=== PATIENT | male | born 1955 | race Caucasian/White ===

== ENCOUNTER 2018-04-16 11:10 | Inpatient (IN) | payer OTHER ==
[2018-04-16 11:25] VITALS: BMI 31.1
--- NOTE | 2018-04-16 14:52 | HP ---
COWS - Scale Resting Pulse: 0= [place] 80 or Below Sweatin= Chills/Flushing Restless Observation: 3= Extraneous Movement Pupil Size: 1= Pupils >than Normal Bone or Joint Aches: 2= Severe Diffuse Aches Runny Nose/ Eye Tearin= Runny Nose/Eyes GI Upset > 30mins: 2= Nausea/Diarrhea Tremor Observation: 2= Slight Tremor Visible Yawning Observation: 2= >3x During Session Anxiety or Irritability: 2=Irritable/Anxious Goose Flesh Skin: 0=Smooth Skin COWS Score: 17 CIWA Score Nausea/Vomitin Muscle Tremors: 2 Anxiety: 2 Agitation: 2 Paroxysmal Sweats: 1-Minimal Palms Moist Orientation: 0-Oriented Tacttile Disturbances: 1-Very Mild Itch/Numbness Auditory Disturbances: 1-Very Mild Visual Disturbances: 0-None Headache: 2-Mild CIWA-Ar Total Score: 13 - Admission Criteria [facility] Guidelines: Admission for Medically Managed Detox: Requires at least one of the followin. CIWA greater than 12 2. Seizures within the past 24 hours 3. Delirium tremens within the past 24 hours 4. Hallucinations within the past 24 hours 5. Acute intervention needed for co occurring medical disorder 6. Acute intervention needed for co occurring psychiatric disorder 7. Severe withdrawal that cannot be handled at a lower level of care (continued vomiting, continued diarrhea, abnormal vital signs) requiring intravenous medication and/or fluids 8. Patient presents the following: CIWA greater than 12 Admission Criteria Met: Admission criteria met Admission ROS [facility] Chief Complaint: i need help to stop using heroin and alcohol Allergies/Adverse Reactions: Allergies Allergy/AdvReac Type Severity Reaction Status Date / Time No Known Allergies Allergy Verified 04/16/18 14:44 History of Present Illness: this 63 years old male with heroin and alcohol dependence,seeking detox from heroin and alcohol,withdrawal symptom,seeking detox,never been in detox before hepatitis c treated anxiety positive ppd longest sobriety 3 and half - Ebola screening Have you traveled outside of the country in the last 21 days: No Have you had contact with anyone from an Ebola affected area: No Have you been sick,other than usual withdrawal symptoms: No Do you have a fever: No - Review of Systems Constitutional: Chills, Loss of Appetite, Malaise, Night Sweats, Changes in sleep, Weakness EENT: reports: Tearing, Nose Congestion Respiratory: reports: No Symptoms reported Cardiac: reports: No Symptoms Reported GI: reports: Diarrhea, Nausea, Vomiting, Abdominal cramping : reports: No Symptoms Reported Musculoskeletal: reports: Back Pain, Joint Pain, Muscle Pain, Joint Stiffness Integumentary: reports: Dryness Neuro: reports: Headache, Tremors Endocrine: reports: No Symptoms Reported Hematology: reports: No Symptoms Reported Psychiatric: reports: No Sypmtoms Reported, Judgement Intact, Mood/Affect Appropiate, Orientated x3, Anxious Other Systems: Reviewed and Negative Patient History - Patient Medical History Hx Anemia: No Hx Asthma: No Hx Chronic Obstructive Pulmonary Disease (COPD): No Hx Cancer: No Hx Cardiac Disorders: No Hx Congestive Heart Failure: No Hx Hypertension: No Hx Hypercholesterolemia: No Hx Pacemaker: No HX Cerebrovascular Accident: No Hx Seizures: No Hx Dementia: No Hx Diabetes: No Hx Gastrointestinal Disorders: No Hx Liver Disease: No Hx Genitourinary Disorders: No Hx Sexually Transmitted Disorders: No Hx Renal Disease (ESRD): No Hx Thyroid Disease: No Hx Human Immunodeficiency Virus (HIV): No (last 2016) Hx Hepatitis C: Yes (treated) Hx Depression: No Hx Suicide Attempt: No Hx Bipolar Disorder: No Hx Schizophrenia: No Other Medical History: anxiety,no suicidal,no homicidal - Patient Surgical History Past Surgical History: No - PPD History Documented Results: Positive w/o proof Implanted On Prior [facility] Admission?: No PPD to be Administered?: No - Smoking Cessation Smoking history: Never smoked - Substance & Tx. History Hx Alcohol Use: Yes Hx Substance Use: Yes Substance Use Type: Alcohol, Heroin Hx Substance Use Treatment: No Family Disease History - Family Disease History Family History: Denies Admission Physical Exam S - Vital Signs Vital Signs: Vital Signs - 24 hr 04/16/18 11:22 Temperature 96.6 F L Pulse Rate 64 Respiratory 20 Rate Blood Pressure 150/87 - Physical General Appearance: Yes: Moderate Distress, Tremorous, Irritable, Sweating, Anxious HEENTM: Yes: Normal ENT Inspection, TETE, Pharynx Normal Respiratory: Yes: Lungs Clear, Normal Breath Sounds, No Respiratory Distress Neck: Yes: Within Normal Limits, Supple, Trachea in good position Breast: Yes: Within Normal Limits Cardiology: Yes: Within Normal Limits, Regular Rhythm, Regular Rate, S1, S2 Abdominal: Yes: Within Normal Limits, Normal Bowel Sounds, Non Tender, Soft Genitourinary: Yes: Within Normal Limits Back: Yes: Muscle Spasm Musculoskeletal: Yes: Back pain, Muscle Pain Extremities: Yes: Within Normal Limits, Normal Range of Motion, Tremors Neurological: Yes: Within Normal Limits, chief librarian branch II-XII NML intact, Fully Oriented, Alert, Motor Strength 5/5 Integumentary: Yes: Dry Lymphatic: Yes: Within Normal Limits - Diagnostic (1) Opioid dependence with withdrawal Current Visit: Yes Status: Acute (2) Alcohol dependence with uncomplicated withdrawal Current Visit: Yes Status: Acute (3) Cocaine dependence Current Visit: Yes Status: Acute (4) Anxiety Current Visit: Yes Status: Acute (5) Positive PPD Current Visit: Yes Status: Acute (6) Hepatitis C Current Visit: Yes Status: Acute Cleared for Admission [facility] - Detox or Rehab [facility] Level of Care: Medically Managed Detox Regimen/Protocol: Methadone [facility] Breath Alcohol Content Breath Alcohol Content: 0 Urine Drug Screen - Results Drug Screen Negative: No Urine Drug Screen Results: OPI-Opiates, FEN-Fentanyl
[2018-04-16] MEDS ORDERED: diazePAM 5 MG TABLET PO PRN (15:03)
[2018-04-16] MEDS ORDERED: LOPERAMIDE HCL 2 MG CAPSULE PO PRN (15:03)
[2018-04-16] MEDS ORDERED: MAGNESIUM CITRATE 300 ML BOTTLE PO PRN (15:03)
[2018-04-16] MEDS ORDERED: ACETAMINOPHEN 325 MG TABLET (FP) PO PRN (15:03)
[2018-04-16] MEDS ORDERED: P-EPHED 60MG/TRIPROLIDI 2.5MG TABLET PO PRN (15:03)
[2018-04-16] MEDS ORDERED: MENTHOL/PHENOL 1 EACH UD MM PRN (15:03)
[2018-04-16] MEDS ORDERED: IBUPROFEN 400 MG TABLET (FP) PO PRN (15:03)
[2018-04-16] MEDS ORDERED: MAGNESIUM HYDROX 2400MG/30ML ORAL SUSPENSION 30 ML CUP PO PRN (15:03)
[2018-04-16] MEDS ORDERED: guaiFENesin/D-METHORPHAN HB 10 ML UNIT-DOSE CUPS PO PRN (15:03)
[2018-04-16] MEDS ORDERED: MAG HYDROX/AL HYDROX/SIMETH 30 ML UNIT-DOSE CUP PO PRN (15:03)
[2018-04-16] MEDS ORDERED: METHADONE HCL 10 MG TABLET (FOR DETOX USE ONLY) PO ONE ×2 (15:30→23:00)
--- NOTE | 2018-04-16 18:57 | PN ---
[facility] Progress Note Note: This is the first admission for this patient who denies chest pain, SOB, or any cardiac history. Vital Signs 04/16/18 04/16/18 04/16/18 11:22 15:55 17:44 Temperature 96.6 F L 97.9 F 98.2 F Pulse Rate 64 60 69 Respiratory 20 18 19 Rate Blood Pressure 150/87 137/77 127/86 EKG reviewed and showed NSR w/ possible anterolateral infarct of undetermined age. Plan: Give Aspirin 325 mg PO Once Start ASA 81 mg PO daily Repeat EKG in am. Encourage patient to f/u w/ PCP upon discharge.
[2018-04-16] MEDS ORDERED: ASPIRIN 325 MG TABLET PO ONE (19:30)
[2018-04-16] MEDS: cloNIDine HCL 0.1 MG TABLET PO SCH (22:22)
[2018-04-16] MEDS: MELATONIN 5 MG TABLETS PO PRN (22:22)
[2018-04-16] MEDS: THIAMINE HCL 100 MG TABLET (FP) PO SCH (22:22)
[2018-04-17] MEDS ORDERED: METHADONE HCL 10 MG TABLET (FOR DETOX USE ONLY) PO ONE (10:00)
[2018-04-17] MEDS: PRENATAL VITAMINS W/ FOLIC ACID TABLET (FP) PO SCH (10:20)
[2018-04-17] MEDS: cloNIDine HCL 0.1 MG TABLET PO SCH ×2 (10:20→22:39)
[2018-04-17] MEDS: ASPIRIN COATED 81 MG TABLET.EC PO SCH (10:20)
[2018-04-17 10:26] LABS: HEMOGLOBIN 14.4 GM/dL (11.7-16.9); MCH 32.4 pg (25.7-33.7); MCHC 33.6 g/dl (32.0-35.9); MEAN CELL VOLUME 96.5 fl (80-96); MEAN PLT VOLUME 9.4 fl (7.5-11.1); PLATELET COUNT 116 K/MM3 (134-434); RBC 4.46 M/mm3 (4.00-5.60); RDW 13.8 % (11.9-15.9); WHITE BLOOD COUNT 3.9 K/mm3 (4.0-10.0)
[2018-04-17 10:50] LABS: ALBUMIN 3.4 g/dl (3.4-5.0); ALK PHOS 108 U/L (45-117); ANION GAP 6 MMOL/L (8-16); BILIRUBIN,TOTAL 2.2 mg/dL (0.2-1); BLOOD UREA NITROGEN 14 mg/dL (7-18); CALCIUM 9.1 mg/dL (8.5-10.1); CHLORIDE 107 mmol/L (98-107); CO2 29 mmol/L (21-32); CREATININE 0.9 mg/dL (0.55-1.3); GLUCOSE,RANDOM 95 mg/dL (74-106); POTASSIUM 3.8 mmol/L (3.5-5.1); SGOT/AST 38 U/L (15-37); SGPT/ALT 22 U/L (13-61); SODIUM 141 mmol/L (136-145); TOT PROT 7.4 g/dl (6.4-8.2)
[2018-04-17] MEDS ORDERED: chlordiazePOXIDE HCL 25 MG CAPSULE PO PRN (11:31)
--- NOTE | 2018-04-17 11:33 | PN ---
S Progress Note Note: pt states he drinks everyday about 30cans of beer especially when he wakes up. pt states he feels jumpy, shakes, sweats. Pt will be put on a librium regimen and he agreed.
--- NOTE | 2018-04-17 11:40 | EKG ---
Test Reason : Blood Pressure : / mmHG Vent. Rate : 060 BPM Atrial Rate : 060 BPM P-R Int : 182 ms QRS Dur : 100 ms QT Int : 450 ms P-R-T Axes : 002 -46 009 degrees QTc Int : 450 ms NORMAL SINUS RHYTHM LEFT ANTERIOR FASCICULAR BLOCK ABNORMAL ECG NO PREVIOUS ECGS AVAILABLE Confirmed by GREGORIO WALLACE MD ([id number]) on 04/17/2018 11:40:02 AM Referred By: Confirmed By:GREGORIO WALLACE MD
--- NOTE | 2018-04-17 11:40 | EKG ---
Test Reason : Blood Pressure : / mmHG Vent. Rate : 066 BPM Atrial Rate : 066 BPM P-R Int : 178 ms QRS Dur : 098 ms QT Int : 442 ms P-R-T Axes : 000 -44 019 degrees QTc Int : 463 ms NORMAL SINUS RHYTHM LEFT AXIS DEVIATION POSSIBLE ANTEROLATERAL INFARCT , AGE UNDETERMINED ABNORMAL ECG WHEN COMPARED WITH ECG OF 16-APR-2018 15:44, BORDERLINE CRITERIA FOR ANTEROLATERAL INFARCT ARE NOW PRESENT Confirmed by MADISON BERGER, GREGORIO ([id number]) on 04/17/2018 11:39:45 AM Referred By: Confirmed By:GREGORIO WALLACE MD
--- NOTE | 2018-04-17 11:53 | PN ---
S CIWA - CIWA Score Nausea/Vomitin-No Nausea/No Vomiting Muscle Tremors: 4-Moderate,w/Arms Extend Anxiety: 4-Mod. Anxious/Guarded Agitation: 4-Moderately Restless Paroxysmal Sweats: 3 Orientation: 0-Oriented Tacttile Disturbances: 0-None Auditory Disturbances: 0-None Visual Disturbances: 0-None Headache: 0-None Present CIWA-Ar Total Score: 15 [facility] COWS - Scale Resting Pulse: 0= [place] 80 or Below Sweatin=Flushed/Facial Moisture Restless Observation: 1= Difficult to Sit Still Pupil Size: 0= Normal to Room Light Bone or Joint Aches: 2= Severe Diffuse Aches Runny Nose/ Eye Tearin= Nasal Congestion GI Upset > 30mins: 0= None Tremor Observation of Outstretched Hands: 2= Slight Tremor Visible Yawning Observation: 2= >3x During Session Anxiety or Irritability: 2=Irritable/Anxious Goose Flesh Skin: 0=Smooth Skin COWS Score: 12 S Progress Note (SOAP) Subjective: shakes sweats interrupted sleep body aches nasal congestion weak Objective: 04/17/18 11:51 Vital Signs Temperature 97.7 F 04/17/18 09:31 Pulse Rate 52 L 04/17/18 09:31 Respiratory Rate 20 04/17/18 09:31 Blood Pressure 124/72 04/17/18 09:31 O2 Sat by Pulse Oximetry (%) Laboratory Tests 04/17/18 04/17/18 07:00 07:00 WBC 3.9 L RBC 4.46 Hgb 14.4 Hct 43.0 MCV 96.5 H MCH 32.4 MCHC 33.6 RDW 13.8 Plt Count 116 L MPV 9.4 Sodium 141 Potassium 3.8 Chloride 107 Carbon Dioxide 29 Anion Gap 6 L BUN 14 Creatinine 0.9 Creat Clearance w eGFR > 60 Random Glucose 95 Calcium 9.1 Total Bilirubin 2.2 H AST 38 H ALT 22 Alkaline Phosphatase 108 Total Protein 7.4 Albumin 3.4 aaox3 ambulating no acute distress Assessment: 04/17/18 11:52 withdrawal sx Plan: continue detox with methadone and librium regimen as per pt request increase fluids
[2018-04-17] MEDS ORDERED: FLU VACCINE QUAD 60 MCG/0.5 ML (MDV 18-19) IM ONE (12:00)
[2018-04-17 12:35] LABS: URINE APPEARANCE CLEAR; URINE BILIRUBIN NEGATIVE (<2.0 mg/dL); URINE COLOR LTYELLOW; URINE GLUCOSE (UA) NEGATIVE (NEGATIVE); URINE KETONE NEGATIVE (NEGATIVE); URINE LEUK ESTERASE NEGATIVE (NEGATIVE); URINE NITRITE NEGATIVE (NEGATIVE); URINE PROTEIN NEGATIVE (NEGATIVE); URINE UROBILINOGEN NEGATIVE mg/dL (0.2-1.0)
[2018-04-17] MEDS: chlordiazePOXIDE HCL 25 MG CAPSULE PO SCH ×2 (18:17→22:40)
--- NOTE | 2018-04-17 21:47 | PN ---
[facility] Progress Note Note: Earlier EKG reviewed. Lungs CTA. HR: regular rhythm. Denies chest pain, SOB. Continue asparin. Encourage to f/u w/ PCP at discharge and show copy of EKG.
[2018-04-17] MEDS: THIAMINE HCL 100 MG TABLET (FP) PO SCH (22:39)
[2018-04-17] MEDS: CYCLOBENZAPRINE HCL 10 MG TABLET (FP) PO PRN (22:40)
[2018-04-17] MEDS: MELATONIN 5 MG TABLETS PO PRN (22:42)
[2018-04-18] MEDS: chlordiazePOXIDE HCL 25 MG CAPSULE PO SCH ×3 (06:13→22:31)
[2018-04-18] MEDS ORDERED: METHADONE HCL 5 MG TABLET (FOR DETOX USE ONLY) PO ONE (10:00)
[2018-04-18] MEDS: PRENATAL VITAMINS W/ FOLIC ACID TABLET (FP) PO SCH (10:19)
[2018-04-18] MEDS: ASPIRIN COATED 81 MG TABLET.EC PO SCH (10:20)
[2018-04-18] MEDS: cloNIDine HCL 0.1 MG TABLET PO SCH ×2 (10:20→22:31)
--- NOTE | 2018-04-18 18:00 | PN ---
[facility] CIWA - CIWA Score Nausea/Vomitin-Mild Nausea/No Vomiting Muscle Tremors: 3 Anxiety: 3 Agitation: 4-Moderately Restless Paroxysmal Sweats: 3 Orientation: 0-Oriented Tacttile Disturbances: 0-None Auditory Disturbances: 0-None Visual Disturbances: 0-None Headache: 0-None Present CIWA-Ar Total Score: 14 S COWS - Scale Resting Pulse: 0= [place] 80 or Below Sweatin=Flushed/Facial Moisture Restless Observation: 1= Difficult to Sit Still Pupil Size: 0= Normal to Room Light Bone or Joint Aches: 2= Severe Diffuse Aches Runny Nose/ Eye Tearin= Nasal Congestion GI Upset > 30mins: 0= None Tremor Observation of Outstretched Hands: 2= Slight Tremor Visible Yawning Observation: 1= 1-2x During Session Anxiety or Irritability: 2=Irritable/Anxious Goose Flesh Skin: 0=Smooth Skin COWS Score: 11 [facility] Progress Note (SOAP) Subjective: sleep disturbance sweats back/hip pain Objective: 04/18/18 17:59 A & O x 3 in bed appears uncomfortable Vital Signs Temperature 96.8 F L 04/18/18 17:14 Pulse Rate 50 L 04/18/18 17:14 Respiratory Rate 16 04/18/18 17:14 Blood Pressure 124/70 04/18/18 17:14 O2 Sat by Pulse Oximetry (%) Assessment: 04/18/18 17:59 withdrawals sx Plan: continue detox continue increased hydration prn pain meds
[2018-04-18] MEDS: THIAMINE HCL 100 MG TABLET (FP) PO SCH (22:31)
[2018-04-19] MEDS: chlordiazePOXIDE HCL 25 MG CAPSULE PO SCH ×2 (05:35→10:39)
[2018-04-19] MEDS ORDERED: METHADONE HCL 5 MG TABLET (FOR DETOX USE ONLY) PO ONE (10:00)
--- NOTE | 2018-04-19 10:10 | PN ---
[facility] Progress Note (SOAP) Subjective: tremor body aches anxiety sweating joints pain Objective: 04/19/18 10:09 Vital Signs Temperature 97.5 F L 04/19/18 09:47 Pulse Rate 52 L 04/19/18 09:47 Respiratory Rate 19 04/19/18 09:47 Blood Pressure 108/53 L 04/19/18 09:47 O2 Sat by Pulse Oximetry (%) Laboratory Last Values WBC 3.9 K/mm3 (4.0-10.0) L 04/17/18 07:00 RBC 4.46 M/mm3 (4.00-5.60) 04/17/18 07:00 Hgb 14.4 GM/dL (11.7-16.9) 04/17/18 07:00 Hct 43.0 % (35.4-49) 04/17/18 07:00 MCV 96.5 fl (80-96) H 04/17/18 07:00 MCH 32.4 pg (25.7-33.7) 04/17/18 07:00 MCHC 33.6 g/dl (32.0-35.9) 04/17/18 07:00 RDW 13.8 % (11.9-15.9) 04/17/18 07:00 Plt Count 116 K/MM3 (134-434) L 04/17/18 07:00 MPV 9.4 fl (7.5-11.1) 04/17/18 07:00 Sodium 141 mmol/L (136-145) 04/17/18 07:00 Potassium 3.8 mmol/L (3.5-5.1) 04/17/18 07:00 Chloride 107 mmol/L (98-107) 04/17/18 07:00 Carbon Dioxide 29 mmol/L (21-32) 04/17/18 07:00 Anion Gap 6 MMOL/L (8-16) L 04/17/18 07:00 BUN 14 mg/dL (7-18) 04/17/18 07:00 Creatinine 0.9 mg/dL (0.55-1.3) 04/17/18 07:00 Creat Clearance w eGFR > 60 (>60) 04/17/18 07:00 Random Glucose 95 mg/dL (74-106) 04/17/18 07:00 Calcium 9.1 mg/dL (8.5-10.1) 04/17/18 07:00 Total Bilirubin 2.2 mg/dL (0.2-1) H 04/17/18 07:00 AST 38 U/L (15-37) H 04/17/18 07:00 ALT 22 U/L (13-61) 04/17/18 07:00 Alkaline Phosphatase 108 U/L (45-117) 04/17/18 07:00 Total Protein 7.4 g/dl (6.4-8.2) 04/17/18 07:00 Albumin 3.4 g/dl (3.4-5.0) 04/17/18 07:00 Urine Color Ltyellow 04/16/18 10:15 Urine Appearance Clear 04/16/18 10:15 Urine pH 6.0 (5.0-8.0) 04/16/18 10:15 Ur Specific [place] 1.006 (1.010-1.035) L 04/16/18 10:15 Urine Protein Negative (NEGATIVE) 04/16/18 10:15 Urine Glucose (UA) Negative (NEGATIVE) 04/16/18 10:15 Urine Ketones Negative (NEGATIVE) 04/16/18 10:15 Urine Blood Negative (NEGATIVE) 04/16/18 10:15 Urine Nitrite Negative (NEGATIVE) 04/16/18 10:15 Urine Bilirubin Negative (<2.0 mg/dL) 04/16/18 10:15 Urine Urobilinogen Negative mg/dL (0.2-1.0) 04/16/18 10:15 Ur Leukocyte Esterase Negative (NEGATIVE) 04/16/18 10:15 RPR Titer Nonreactive (NONREACTIVE) 04/17/18 07:00 lab noted discontinue motrin Assessment: 04/19/18 10:10 withdrawal sx Plan: continue alcohol and opiate detox
[2018-04-19] MEDS: PRENATAL VITAMINS W/ FOLIC ACID TABLET (FP) PO SCH (10:39)
[2018-04-19] MEDS: ASPIRIN COATED 81 MG TABLET.EC PO SCH (10:39)
[2018-04-19] MEDS: cloNIDine HCL 0.1 MG TABLET PO SCH ×2 (10:42→22:14)
[2018-04-19] MEDS: chlordiazePOXIDE 5 MG CAPSULE PO SCH ×2 (19:11→22:13)
[2018-04-19] MEDS: THIAMINE HCL 100 MG TABLET (FP) PO SCH (22:13)
[2018-04-19] MEDS: MELATONIN 5 MG TABLETS PO PRN (22:14)
[2018-04-20] MEDS: chlordiazePOXIDE 5 MG CAPSULE PO SCH ×2 (06:11→10:23)
[2018-04-20] MEDS ORDERED: METHADONE HCL 10 MG TABLET (FOR DETOX USE ONLY) PO ONE (10:00)
[2018-04-20] MEDS: cloNIDine HCL 0.1 MG TABLET PO SCH ×2 (10:24→22:27)
[2018-04-20] MEDS: PRENATAL VITAMINS W/ FOLIC ACID TABLET (FP) PO SCH (10:24)
[2018-04-20] MEDS: ASPIRIN COATED 81 MG TABLET.EC PO SCH (11:33)
--- NOTE | 2018-04-20 15:43 | PN ---
[facility] Progress Note (SOAP) Subjective: Tremors, Body Aches, Interrupted Sleep, Sweating, Fatigue. Objective: PATIENT A & O X 3. IN NO ACUTE DISTRESS. 04/20/18 15:42 Vital Signs Temperature 98.1 F 04/20/18 13:52 Pulse Rate 49 L 04/20/18 13:52 Respiratory Rate 18 04/20/18 13:52 Blood Pressure 107/57 L 04/20/18 13:52 O2 Sat by Pulse Oximetry (%) Laboratory Tests 04/16/18 04/17/18 04/17/18 10:15 07:00 07:00 WBC 3.9 L RBC 4.46 Hgb 14.4 Hct 43.0 MCV 96.5 H MCH 32.4 MCHC 33.6 RDW 13.8 Plt Count 116 L MPV 9.4 Sodium 141 Potassium 3.8 Chloride 107 Carbon Dioxide 29 Anion Gap 6 L BUN 14 Creatinine 0.9 Creat Clearance w eGFR > 60 Random Glucose 95 Calcium 9.1 Total Bilirubin 2.2 H AST 38 H ALT 22 Alkaline Phosphatase 108 Total Protein 7.4 Albumin 3.4 Urine Color Ltyellow Urine Appearance Clear Urine pH 6.0 Ur Specific [place] 1.006 L Urine Protein Negative Urine Glucose (UA) Negative Urine Ketones Negative Urine Blood Negative Urine Nitrite Negative Urine Bilirubin Negative Urine Urobilinogen Negative Ur Leukocyte Esterase Negative RPR Titer 04/17/18 07:00 WBC RBC Hgb Hct MCV MCH MCHC RDW Plt Count MPV Sodium Potassium Chloride Carbon Dioxide Anion Gap BUN Creatinine Creat Clearance w eGFR Random Glucose Calcium Total Bilirubin AST ALT Alkaline Phosphatase Total Protein Albumin Urine Color Urine Appearance Urine pH Ur Specific [place] Urine Protein Urine Glucose (UA) Urine Ketones Urine Blood Urine Nitrite Urine Bilirubin Urine Urobilinogen Ur Leukocyte Esterase RPR Titer Nonreactive LABS NOTED. Assessment: 04/20/18 15:42 WITHDRAWAL SYMPTOMS. HYPERBILIRUBINEMIA. THROMBOCYTOPENIA. 04/20/18 15:42 Plan: CONTINUE DETOX. PATIENT SCHEDULED FOR D/C TOMORROW.
[2018-04-20] MEDS: chlordiazePOXIDE HCL 10 MG CAPSULE PO SCH ×2 (18:16→22:28)
[2018-04-20] MEDS: THIAMINE HCL 100 MG TABLET (FP) PO SCH (22:27)
[2018-04-20] MEDS: CYCLOBENZAPRINE HCL 10 MG TABLET (FP) PO PRN (22:28)
[2018-04-21] MEDS: chlordiazePOXIDE HCL 10 MG CAPSULE PO SCH (05:57)
[2018-04-21] MEDS ORDERED: METHADONE HCL 5 MG TABLET (FOR DETOX USE ONLY) PO ONE (06:00)
[2018-04-21 07:54] VITALS: BP 102/60; PULSE 45; TEMP 97.7
--- NOTE | 2018-04-21 09:33 | DS ---
[facility] Detox Discharge Summary Admission Date: 04/16/18 Discharge Date: 04/21/18 - History Present History: Alcohol Dependence, Cannabis Dependence - Physical Exam Results Vital Signs: Vital Signs Temperature 97.7 F 04/21/18 07:54 Pulse Rate 45 L 04/21/18 07:54 Respiratory Rate 16 04/21/18 07:54 Blood Pressure 102/60 04/21/18 07:54 O2 Sat by Pulse Oximetry (%) - Treatment Hospital Course: Detox Protocol Followed, Detoxed Safely, Responded well, Discharged Condition Good, Rehab Referral Accepted - Medication Discharge Medications: Ambulatory Orders NK [No Known Home Medication] 04/16/18 - Diagnosis (1) Alcohol dependence with uncomplicated withdrawal Current Visit: Yes Status: Chronic (2) Anxiety Current Visit: Yes Status: Acute (3) Cocaine dependence Current Visit: Yes Status: Chronic Qualifiers: Substance use status: uncomplicated Qualified Code(s): F14.20 - Cocaine dependence, uncomplicated (4) Hepatitis C Current Visit: Yes Status: Acute (5) Opioid dependence with withdrawal Current Visit: Yes Status: Chronic (6) Positive PPD Current Visit: Yes Status: Acute - AMA Did Patient Leave Against Medical Advice: No (referred to [facility])
== END 2018-04-21 08:59 | disposition home or self-care (01) | DRG 773 ==
LOC: YASAS 11:10 → Y6N 15:12
PROC: HZ2ZZZZ Detoxification Services for Substance Abuse Treatment (ICD-10-PCS; principal; 2018-04-16)
DX: F11.23 Opioid dependence with withdrawal (principal); F10.230 Alcohol dependence with withdrawal, uncomplicated; F14.20 Cocaine dependence, uncomplicated; F12.20 Cannabis dependence, uncomplicated; F41.9 Anxiety disorder, unspecified; R17 Unspecified jaundice; D72.829 Elevated white blood cell count, unspecified; B18.2 Chronic viral hepatitis C; R76.11 Nonspecific reaction to tuberculin skin test without active tuberculosis; Z59.0 Homelessness
CPT/HCPCS: 36415; 71045-TC-FY; 80053; 81003; 85027; 86593; 90688; 93005; 93010; G0008; J0735

== ENCOUNTER 2018-06-02 11:36 | Inpatient (IN) | payer OTHER ==
[2018-06-02 12:59] VITALS: BMI 30.7
--- NOTE | 2018-06-02 13:23 | HP ---
COWS - Scale Resting Pulse: 0= [place] 80 or Below Sweatin=Flushed/Facial Moisture Restless Observation: 1= Difficult to Sit Still Pupil Size: 1= Pupils >than Normal Bone or Joint Aches: 1= Mild Discomfort Runny Nose/ Eye Tearin= Runny Nose/Eyes GI Upset > 30mins: 1= Stomach Cramp Tremor Observation: 1= Tremor [place], Not Seen Yawning Observation: 1= 1-2x During Session Anxiety or Irritability: 2=Irritable/Anxious Goose Flesh Skin: 0=Smooth Skin COWS Score: 12 CIWA Score Nausea/Vomitin-No Nausea/No Vomiting Muscle Tremors: 2 Anxiety: 3 Agitation: 3 Paroxysmal Sweats: 2 Orientation: 2-Disoriented Date<2 days Tacttile Disturbances: 1-Very Mild Itch/Numbness Auditory Disturbances: 1-Very Mild Visual Disturbances: 0-None Headache: 0-None Present CIWA-Ar Total Score: 14 - Admission Criteria [facility] Guidelines: Admission for Medically Managed Detox: Requires at least one of the followin. CIWA greater than 12 2. Seizures within the past 24 hours 3. Delirium tremens within the past 24 hours 4. Hallucinations within the past 24 hours 5. Acute intervention needed for co occurring medical disorder 6. Acute intervention needed for co occurring psychiatric disorder 7. Severe withdrawal that cannot be handled at a lower level of care (continued vomiting, continued diarrhea, abnormal vital signs) requiring intravenous medication and/or fluids 8. Patient presents the following: CIWA greater than 12 Admission Criteria Met: Admission criteria met Admission ROS [facility] Chief Complaint: " i need detox" Allergies/Adverse Reactions: Allergies Allergy/AdvReac Type Severity Reaction Status Date / Time No Known Allergies Allergy Verified 04/16/18 14:44 History of Present Illness: Patient is a 63 years old male with heroin (nasal) and alcohol dependence is here seeking detox from heroin and alcohol, c/o withdrawal symptom. Patient is self referred, this is one of multiple admissions. Reports hx of tx with out patient [facility] four years go and reports interest in Suboxone therapy upon completing detox. Last detox [facility] 04/16/18. PMHX: hepatitis c treated, anxiety, positive ppd. longest sobriety 3.5 years. Denies suicidal / homicidal ideation. Denies hx of seizures, black outs or overdose. Exam Limitations: No Limitations - Ebola screening Have you traveled outside of the country in the last 21 days: No Have you had contact with anyone from an Ebola affected area: No Have you been sick,other than usual withdrawal symptoms: No - Review of Systems Constitutional: Chills, Loss of Appetite, Other (fatigue) EENT: reports: Nose Congestion (runny nose) Respiratory: reports: SOB with Exertion Cardiac: reports: No Symptoms Reported GI: reports: Poor Appetite, Poor Fluid Intake, Abdominal cramping : reports: No Symptoms Reported Musculoskeletal: reports: Back Pain, Joint Pain Integumentary: reports: No Symptoms Reported Neuro: reports: Weakness Endocrine: reports: Flushing, Increased Thirst Hematology: reports: No Symptoms Reported Psychiatric: reports: Orientated x3, Anxious Other Systems: Reviewed and Negative Patient History - Patient Medical History Hx Anemia: No Hx Asthma: No Hx Chronic Obstructive Pulmonary Disease (COPD): No Hx Cancer: No Hx Cardiac Disorders: No Hx Congestive Heart Failure: No Hx Hypertension: No Hx Hypercholesterolemia: No Hx Pacemaker: No HX Cerebrovascular Accident: No Hx Seizures: No Hx Dementia: No Hx Diabetes: No Hx Gastrointestinal Disorders: No Hx Liver Disease: No Hx Genitourinary Disorders: No Hx Sexually Transmitted Disorders: No Hx Renal Disease (ESRD): No Hx Thyroid Disease: No Hx Human Immunodeficiency Virus (HIV): No (last 2016) Hx Hepatitis C: Yes (treated) Hx Depression: No Hx Suicide Attempt: No Hx Bipolar Disorder: No Hx Schizophrenia: No - Patient Surgical History Past Surgical History: No - PPD History Results: neg chest x-ray PPD to be Administered?: No - Smoking Cessation Smoking history: Never smoked Hx Chewing Tobacco Use: No Initiated information on smoking cessation: No - Substance & Tx. History Hx Alcohol Use: Yes Hx Substance Use: Yes Substance Use Type: Alcohol, Cocaine, Heroin, Opiates Hx Substance Use Treatment: Yes (Detox 04/16/18 - 04/21/18 [facility] ) - Substances Abused heroin Route: Inhalation Frequency: Daily Amount used: $200 Age of first use: 20 Date of Last Use: 06/02/18 (6am) alcohol Route: Oral Frequency: Daily Amount used: 50 x 12 oz beer Age of first use: 19 Date of Last Use: 06/02/18 street methadone Route: Oral Frequency: 1-2 times per week Amount used: 70 mg Age of first use: 20 Date of Last Use: 05/31/18 Family Disease History - Family Disease History Family History: Denies Admission Physical Exam [facility] - Vital Signs Vital Signs: Vital Signs - 24 hr 06/02/18 12:52 Temperature 98.4 F Pulse Rate 62 Respiratory 20 Rate Blood Pressure 114/74 - Physical General Appearance: Yes: Appropriately Dressed, Mild Distress, Sweating, Anxious , Other (flushed) HEENTM: Yes: EOMI, Hearing grossly Normal, Normal ENT Inspection, Normocephalic , Normal Voice, TETE, Pharynx Normal, Rhinorrhea Respiratory: Yes: Chest Non-Tender, Lungs Clear, Normal Breath Sounds, No Respiratory Distress, No Accessory Muscle Use Neck: Yes: Within Normal Limits Breast: Yes: Breast Exam Deferred Cardiology: Yes: Regular Rhythm, Regular Rate Abdominal: Yes: Normal Bowel Sounds, Non Tender, Flat, Soft Genitourinary: Yes: Within Normal Limits Back: Yes: Normal Inspection Musculoskeletal: Yes: full range of Motion, Gait Steady, Pelvis Stable, Back pain Extremities: Yes: Normal Capillary Refill, Normal Inspection, Normal Range of Motion, Non-Tender 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, Fully Oriented, Alert, Motor Strength 5/5, Depressed Affect Integumentary: Yes: Normal Color, Dry, Warm Lymphatic: Yes: Within Normal Limits - Diagnostic (1) Opioid dependence with withdrawal Current Visit: Yes Status: Acute (2) Alcohol dependence with uncomplicated withdrawal Current Visit: Yes Status: Chronic (3) Hepatitis C Current Visit: Yes Status: Chronic Qualifiers: Viral hepatitis chronicity: chronic Hepatic coma status: without hepatic coma Qualified Code(s): B18.2 - Chronic viral hepatitis C (4) Positive PPD Current Visit: Yes Status: Chronic Cleared for Admission [facility] - Detox or Rehab [facility] Level of Care: Medically Managed Detox Regimen/Protocol: Methadone/Librium [facility] Breath Alcohol Content Breath Alcohol Content: 0.008 Urine Drug Screen - Results Drug Screen Negative: No Urine Drug Screen Results: OPI-Opiates, MTD-Methadone, FEN-Fentanyl Inpatient Rehab Admission - Rehab Decision to Admit Inpatient rehab admission?: No
[2018-06-02] MEDS ORDERED: MENTHOL/PHENOL 1 EACH UD MM PRN (13:31)
[2018-06-02] MEDS ORDERED: MAGNESIUM CITRATE 300 ML BOTTLE PO PRN (13:31)
[2018-06-02] MEDS ORDERED: METHADONE HCL 10 MG TABLET (FOR DETOX USE ONLY) PO ONE ×2 (13:31→23:00)
[2018-06-02] MEDS ORDERED: LOPERAMIDE HCL 2 MG CAPSULE PO PRN (13:31)
[2018-06-02] MEDS ORDERED: IBUPROFEN 400 MG TABLET (FP) PO PRN (13:31)
[2018-06-02] MEDS ORDERED: P-EPHED 60MG/TRIPROLIDI 2.5MG TABLET PO PRN (13:31)
[2018-06-02] MEDS ORDERED: MAG HYDROX/AL HYDROX/SIMETH 30 ML UNIT-DOSE CUP PO PRN (13:31)
[2018-06-02] MEDS ORDERED: MAGNESIUM HYDROX 2400MG/30ML ORAL SUSPENSION 30 ML CUP PO PRN (13:31)
[2018-06-02] MEDS ORDERED: guaiFENesin/D-METHORPHAN HB 10 ML UNIT-DOSE CUPS PO PRN (13:31)
[2018-06-02] MEDS: chlordiazePOXIDE HCL 25 MG CAPSULE PO PRN (16:38)
[2018-06-02] MEDS: chlordiazePOXIDE HCL 25 MG CAPSULE PO SCH (22:26)
[2018-06-02] MEDS: MELATONIN 5 MG TABLETS PO PRN (22:26)
[2018-06-02] MEDS: THIAMINE HCL 100 MG TABLET (FP) PO SCH (22:26)
[2018-06-03] MEDS: chlordiazePOXIDE HCL 25 MG CAPSULE PO SCH ×3 (05:46→17:48)
[2018-06-03] MEDS ORDERED: METHADONE HCL 10 MG TABLET (FOR DETOX USE ONLY) PO SCH (10:00)
[2018-06-03 10:05] LABS: HEMATOCRIT 44.2 % (35.4-49); HEMOGLOBIN 15.7 GM/dL (11.7-16.9); MCH 34.9 pg (25.7-33.7); MCHC 35.5 g/dl (32.0-35.9); MEAN CELL VOLUME 98.3 fl (80-96); MEAN PLT VOLUME 10.1 fl (7.5-11.1); PLATELET COUNT 123 K/MM3 (134-434); RBC 4.49 M/mm3 (4.00-5.60); RDW 14.2 % (11.9-15.9); WHITE BLOOD COUNT 6.1 K/mm3 (4.0-10.0)
[2018-06-03] MEDS: PRENATAL VITAMINS W/ FOLIC ACID TABLET (FP) PO SCH (10:33)
[2018-06-03 10:35] LABS: ALK PHOS 92 U/L (45-117); ANION GAP 6 MMOL/L (8-16); BLOOD UREA NITROGEN 13 mg/dL (7-18); CHLORIDE 106 mmol/L (98-107); CO2 27 mmol/L (21-32); CREATININE 0.8 mg/dL (0.55-1.3); GLUCOSE,RANDOM 82 mg/dL (74-106); POTASSIUM 4.1 mmol/L (3.5-5.1); SGOT/AST 53 U/L (15-37); SGPT/ALT 30 U/L (13-61); SODIUM 138 mmol/L (136-145); TOT PROT 8.6 g/dl (6.4-8.2)
--- NOTE | 2018-06-03 16:24 | PN ---
[facility] CIWA - CIWA Score Nausea/Vomitin-No Nausea/No Vomiting Muscle Tremors: 2 Anxiety: 1-Mildly Anxious Agitation: 1-Slight > Activity Paroxysmal Sweats: 1-Minimal Palms Moist Orientation: 0-Oriented Tacttile Disturbances: 0-None Auditory Disturbances: 0-None Visual Disturbances: 0-None Headache: 0-None Present CIWA-Ar Total Score: 5 [facility] COWS - Scale Resting Pulse: 0= [place] 80 or Below Sweatin= Chills/Flushing Restless Observation: 0= Sits Still Pupil Size: 0= Normal to Room Light Bone or Joint Aches: 1= Mild Discomfort Runny Nose/ Eye Tearin= Nasal Congestion GI Upset > 30mins: 1= Stomach Cramp Tremor Observation of Outstretched Hands: 1= Tremor [place], Not Seen Yawning Observation: 1= 1-2x During Session Anxiety or Irritability: 1=Feels Anxious/Irritable Goose Flesh Skin: 0=Smooth Skin COWS Score: 7 [facility] Progress Note (SOAP) Subjective: body ache tremor muscle cramping sweating Objective: 06/03/18 16:23 Vital Signs Temperature 96.7 F L 06/03/18 09:20 Pulse Rate 64 06/03/18 09:20 Respiratory Rate 18 06/03/18 09:20 Blood Pressure 101/65 06/03/18 09:20 O2 Sat by Pulse Oximetry (%) Laboratory Last Values WBC 6.1 K/mm3 (4.0-10.0) 06/03/18 05:45 RBC 4.49 M/mm3 (4.00-5.60) 06/03/18 05:45 Hgb 15.7 GM/dL (11.7-16.9) 06/03/18 05:45 Hct 44.2 % (35.4-49) 06/03/18 05:45 MCV 98.3 fl (80-96) H 06/03/18 05:45 MCH 34.9 pg (25.7-33.7) H 06/03/18 05:45 MCHC 35.5 g/dl (32.0-35.9) 06/03/18 05:45 RDW 14.2 % (11.9-15.9) 06/03/18 05:45 Plt Count 123 K/MM3 (134-434) L 06/03/18 05:45 MPV 10.1 fl (7.5-11.1) 06/03/18 05:45 Sodium 138 mmol/L (136-145) 06/03/18 05:45 Potassium 4.1 mmol/L (3.5-5.1) 06/03/18 05:45 Chloride 106 mmol/L (98-107) 06/03/18 05:45 Carbon Dioxide 27 mmol/L (21-32) 06/03/18 05:45 Anion Gap 6 MMOL/L (8-16) L 06/03/18 05:45 BUN 13 mg/dL (7-18) 06/03/18 05:45 Creatinine 0.8 mg/dL (0.55-1.3) 06/03/18 05:45 Creat Clearance w eGFR > 60 (>60) 06/03/18 05:45 Random Glucose 82 mg/dL (74-106) 06/03/18 05:45 Calcium 9.0 mg/dL (8.5-10.1) 06/03/18 05:45 Total Bilirubin 2.0 mg/dL (0.2-1) H 06/03/18 05:45 AST 53 U/L (15-37) H 06/03/18 05:45 ALT 30 U/L (13-61) 06/03/18 05:45 Alkaline Phosphatase 92 U/L (45-117) 06/03/18 05:45 Total Protein 8.6 g/dl (6.4-8.2) H 06/03/18 05:45 Albumin 4.0 g/dl (3.4-5.0) 06/03/18 05:45 RPR Titer Nonreactive (NONREACTIVE) 06/03/18 05:45 lab noted Assessment: 06/03/18 16:24 withdrawal sx Plan: continue detox
[2018-06-03] MEDS: ACETAMINOPHEN 325 MG TABLET (FP) PO PRN (21:44)
[2018-06-03] MEDS: chlordiazePOXIDE HCL 25 MG CAPSULE PO PRN (21:44)
[2018-06-03] MEDS: THIAMINE HCL 100 MG TABLET (FP) PO SCH (21:44)
[2018-06-03] MEDS: MELATONIN 5 MG TABLETS PO PRN (21:47)
[2018-06-04] MEDS: chlordiazePOXIDE HCL 25 MG CAPSULE PO SCH ×4 (00:05→17:15)
[2018-06-04] MEDS: PRENATAL VITAMINS W/ FOLIC ACID TABLET (FP) PO SCH (10:13)
[2018-06-04] MEDS: METHADONE HCL 5 MG TABLET (FOR DETOX USE ONLY) PO SCH (10:13)
[2018-06-04] MEDS ORDERED: BACLOFEN 10 MG TABLET (FP) PO ONE (12:52)
--- NOTE | 2018-06-04 12:57 | PN ---
[facility] CIWA - CIWA Score Nausea/Vomitin-No Nausea/No Vomiting Muscle Tremors: 2 Anxiety: 1-Mildly Anxious Agitation: 1-Slight > Activity Paroxysmal Sweats: 1-Minimal Palms Moist Orientation: 0-Oriented Tacttile Disturbances: 0-None Auditory Disturbances: 0-None Visual Disturbances: 0-None Headache: 0-None Present CIWA-Ar Total Score: 5 S COWS - Scale Resting Pulse: 0= [place] 80 or Below Sweatin= Chills/Flushing Restless Observation: 0= Sits Still Pupil Size: 0= Normal to Room Light Bone or Joint Aches: 1= Mild Discomfort Runny Nose/ Eye Tearin= Nasal Congestion GI Upset > 30mins: 0= None Tremor Observation of Outstretched Hands: 1= Tremor [place], Not Seen Yawning Observation: 0= None Anxiety or Irritability: 0= None Goose Flesh Skin: 0=Smooth Skin COWS Score: 4 S Progress Note (SOAP) Subjective: body ache muscle cramping tremor sweating longest sobriety "years" ambivalent about aftercare Objective: 06/04/18 12:56 Vital Signs Temperature 98.9 F 06/04/18 09:17 Pulse Rate 58 L 06/04/18 09:17 Respiratory Rate 18 06/04/18 09:17 Blood Pressure 112/63 06/04/18 09:17 O2 Sat by Pulse Oximetry (%) Laboratory Last Values WBC 6.1 K/mm3 (4.0-10.0) 06/03/18 05:45 RBC 4.49 M/mm3 (4.00-5.60) 06/03/18 05:45 Hgb 15.7 GM/dL (11.7-16.9) 06/03/18 05:45 Hct 44.2 % (35.4-49) 06/03/18 05:45 MCV 98.3 fl (80-96) H 06/03/18 05:45 MCH 34.9 pg (25.7-33.7) H 06/03/18 05:45 MCHC 35.5 g/dl (32.0-35.9) 06/03/18 05:45 RDW 14.2 % (11.9-15.9) 06/03/18 05:45 Plt Count 123 K/MM3 (134-434) L 06/03/18 05:45 MPV 10.1 fl (7.5-11.1) 06/03/18 05:45 Sodium 138 mmol/L (136-145) 06/03/18 05:45 Potassium 4.1 mmol/L (3.5-5.1) 06/03/18 05:45 Chloride 106 mmol/L (98-107) 06/03/18 05:45 Carbon Dioxide 27 mmol/L (21-32) 06/03/18 05:45 Anion Gap 6 MMOL/L (8-16) L 06/03/18 05:45 BUN 13 mg/dL (7-18) 06/03/18 05:45 Creatinine 0.8 mg/dL (0.55-1.3) 06/03/18 05:45 Creat Clearance w eGFR > 60 (>60) 06/03/18 05:45 Random Glucose 82 mg/dL (74-106) 06/03/18 05:45 Calcium 9.0 mg/dL (8.5-10.1) 06/03/18 05:45 Total Bilirubin 2.0 mg/dL (0.2-1) H 06/03/18 05:45 AST 53 U/L (15-37) H 06/03/18 05:45 ALT 30 U/L (13-61) 06/03/18 05:45 Alkaline Phosphatase 92 U/L (45-117) 06/03/18 05:45 Total Protein 8.6 g/dl (6.4-8.2) H 06/03/18 05:45 Albumin 4.0 g/dl (3.4-5.0) 06/03/18 05:45 RPR Titer Nonreactive (NONREACTIVE) 06/03/18 05:45 lab noted Assessment: 06/04/18 12:57 alcohol and opiate withdrawal sx Plan: continue detox lidocain patch and baclofen 10 mg x 1
[2018-06-04] MEDS: LIDOCAINE 5% TOPICAL PATCH TP SCH (14:27)
[2018-06-04] MEDS: chlordiazePOXIDE HCL 25 MG CAPSULE PO PRN (14:30)
[2018-06-04] MEDS: chlordiazePOXIDE 5 MG CAPSULE PO SCH (22:08)
[2018-06-04] MEDS: MELATONIN 5 MG TABLETS PO PRN (22:08)
[2018-06-04] MEDS: LIDOCAINE PATCH REMOVAL MC SCH (22:09)
[2018-06-04] MEDS: THIAMINE HCL 100 MG TABLET (FP) PO SCH (22:09)
[2018-06-05] MEDS: chlordiazePOXIDE 5 MG CAPSULE PO SCH ×3 (05:58→17:16)
[2018-06-05] MEDS: LIDOCAINE 5% TOPICAL PATCH TP SCH (10:18)
[2018-06-05] MEDS: METHADONE HCL 5 MG TABLET (FOR DETOX USE ONLY) PO SCH (10:19)
[2018-06-05] MEDS: PRENATAL VITAMINS W/ FOLIC ACID TABLET (FP) PO SCH (10:20)
--- NOTE | 2018-06-05 16:56 | PN ---
[facility] Progress Note (SOAP) Subjective: Tremors, H/A, Constipation, Anxious, Interrupted Sleep, Hot / Cold Sensations, Body Aches. Objective: PATIENT A & O X 3, OBSERVED AMBULATING ON UNIT. IN NO ACUTE DISTRESS. 06/05/18 16:57 Vital Signs Temperature 97.6 F 06/05/18 13:40 Pulse Rate 61 06/05/18 13:40 Respiratory Rate 18 06/05/18 13:40 Blood Pressure 103/69 06/05/18 13:40 O2 Sat by Pulse Oximetry (%) Laboratory Tests 06/03/18 06/03/18 06/03/18 05:45 05:45 05:45 WBC 6.1 RBC 4.49 Hgb 15.7 Hct 44.2 MCV 98.3 H MCH 34.9 H MCHC 35.5 RDW 14.2 Plt Count 123 L MPV 10.1 Sodium 138 Potassium 4.1 Chloride 106 Carbon Dioxide 27 Anion Gap 6 L BUN 13 Creatinine 0.8 Creat Clearance w eGFR > 60 Random Glucose 82 Calcium 9.0 Total Bilirubin 2.0 H AST 53 H ALT 30 Alkaline Phosphatase 92 Total Protein 8.6 H Albumin 4.0 RPR Titer Nonreactive LABS NOTED. Assessment: 06/05/18 16:59 WITHDRAWAL SYMPTOMS. HYPERBILIRUBINEMIA. THROMBOCYTOPENIA. Plan: CONTINUE DETOX./ INCREASE DAILY PO FLUID INTAKE. PRN MOM FOR CONSTIPATION. REPEAT BILIRUBIN LEVEL TOMORROW AM FOR ELEVATED ADMISSION BILIRUBIN LEVEL.
[2018-06-05] MEDS: THIAMINE HCL 100 MG TABLET (FP) PO SCH (21:53)
[2018-06-05] MEDS: MELATONIN 5 MG TABLETS PO PRN (21:53)
[2018-06-05] MEDS: LIDOCAINE PATCH REMOVAL MC SCH (21:54)
[2018-06-05] MEDS: chlordiazePOXIDE HCL 10 MG CAPSULE PO SCH (22:11)
[2018-06-06] MEDS: chlordiazePOXIDE HCL 10 MG CAPSULE PO SCH ×3 (05:30→17:25)
[2018-06-06] MEDS ORDERED: METHADONE HCL 10 MG TABLET (FOR DETOX USE ONLY) PO SCH (10:00)
[2018-06-06] MEDS: PRENATAL VITAMINS W/ FOLIC ACID TABLET (FP) PO SCH (10:05)
[2018-06-06] MEDS: LIDOCAINE 5% TOPICAL PATCH TP SCH (10:06)
--- NOTE | 2018-06-06 15:00 | PN ---
[facility] Progress Note (SOAP) Subjective: Tremors, Anxious, Interrupted Sleep, Body Aches. Objective: PATIENT A & O X 3, OBSERVED AMBULATING ON UNIT. IN NO ACUTE DISTRESS. 06/06/18 14:58 Vital Signs Temperature 98.8 F 06/06/18 14:04 Pulse Rate 62 06/06/18 14:04 Respiratory Rate 18 06/06/18 14:04 Blood Pressure 131/75 06/06/18 14:04 O2 Sat by Pulse Oximetry (%) Laboratory Tests 06/03/18 06/03/18 06/03/18 05:45 05:45 05:45 WBC 6.1 RBC 4.49 Hgb 15.7 Hct 44.2 MCV 98.3 H MCH 34.9 H MCHC 35.5 RDW 14.2 Plt Count 123 L MPV 10.1 Sodium 138 Potassium 4.1 Chloride 106 Carbon Dioxide 27 Anion Gap 6 L BUN 13 Creatinine 0.8 Creat Clearance w eGFR > 60 Random Glucose 82 Calcium 9.0 Total Bilirubin 2.0 H AST 53 H ALT 30 Alkaline Phosphatase 92 Total Protein 8.6 H Albumin 4.0 RPR Titer Nonreactive 06/06/18 07:50 WBC RBC Hgb Hct MCV MCH MCHC RDW Plt Count MPV Sodium Potassium Chloride Carbon Dioxide Anion Gap BUN Creatinine Creat Clearance w eGFR Random Glucose Calcium Total Bilirubin 1.5 H AST ALT Alkaline Phosphatase Total Protein Albumin RPR Titer LABS NOTED. RESULT OF REPEAT BILIRUBIN LEVEL (REDUCTION IN COMPARISON TO ADMISSION BILIRUBIN LEVEL) NOTED. 06/06/18 14:59 Assessment: 06/06/18 14:58 WITHDRAWAL SYMPTOMS. HYPERBILIRUBINEMIA. THROMBOCYTOPENIA. 06/06/18 14:59 Plan: CONTINUE DETOX. INCREASE DAILY PO FLUID INTAKE.
[2018-06-06] MEDS: MELATONIN 5 MG TABLETS PO PRN (22:13)
[2018-06-06] MEDS: LIDOCAINE PATCH REMOVAL MC SCH (22:14)
[2018-06-06] MEDS: THIAMINE HCL 100 MG TABLET (FP) PO SCH (22:14)
[2018-06-07] MEDS: ACETAMINOPHEN 325 MG TABLET (FP) PO PRN (00:43)
[2018-06-07] MEDS ORDERED: METHADONE HCL 5 MG TABLET (FOR DETOX USE ONLY) PO SCH (06:00)
[2018-06-07 09:30] VITALS: BP 132/76; PULSE 61; TEMP 97.1
--- NOTE | 2018-06-07 09:45 | DS ---
[facility] Detox Discharge Summary Admission Date: 06/02/18 Discharge Date: 06/07/18 - History Present History: Alcohol Dependence, Opioid Dependence Additional Comments: 63 years old male admitted on 06/02/18 for alcohol and opioid withdrawal stabilization completed detox regimen aftercare [facility]N available today Pertinent Past History: encourage bulk picker narcan kit from pharmacy - Physical Exam Results Vital Signs: Vital Signs Temperature 97.1 F L 06/07/18 09:30 Pulse Rate 61 06/07/18 09:30 Respiratory Rate 18 06/07/18 09:30 Blood Pressure 132/76 06/07/18 09:30 O2 Sat by Pulse Oximetry (%) Pertinent Admission Physical Exam Findings: alcohol and opiate withdrawal sx Laboratory Last Values WBC 6.1 K/mm3 (4.0-10.0) 06/03/18 05:45 RBC 4.49 M/mm3 (4.00-5.60) 06/03/18 05:45 Hgb 15.7 GM/dL (11.7-16.9) 06/03/18 05:45 Hct 44.2 % (35.4-49) 06/03/18 05:45 MCV 98.3 fl (80-96) H 06/03/18 05:45 MCH 34.9 pg (25.7-33.7) H 06/03/18 05:45 MCHC 35.5 g/dl (32.0-35.9) 06/03/18 05:45 RDW 14.2 % (11.9-15.9) 06/03/18 05:45 Plt Count 123 K/MM3 (134-434) L 06/03/18 05:45 MPV 10.1 fl (7.5-11.1) 06/03/18 05:45 Sodium 138 mmol/L (136-145) 06/03/18 05:45 Potassium 4.1 mmol/L (3.5-5.1) 06/03/18 05:45 Chloride 106 mmol/L (98-107) 06/03/18 05:45 Carbon Dioxide 27 mmol/L (21-32) 06/03/18 05:45 Anion Gap 6 MMOL/L (8-16) L 06/03/18 05:45 BUN 13 mg/dL (7-18) 06/03/18 05:45 Creatinine 0.8 mg/dL (0.55-1.3) 06/03/18 05:45 Creat Clearance w eGFR > 60 (>60) 06/03/18 05:45 Random Glucose 82 mg/dL (74-106) 06/03/18 05:45 Calcium 9.0 mg/dL (8.5-10.1) 06/03/18 05:45 Total Bilirubin 1.5 mg/dL (0.2-1) H 06/06/18 07:50 AST 53 U/L (15-37) H 06/03/18 05:45 ALT 30 U/L (13-61) 06/03/18 05:45 Alkaline Phosphatase 92 U/L (45-117) 06/03/18 05:45 Total Protein 8.6 g/dl (6.4-8.2) H 06/03/18 05:45 Albumin 4.0 g/dl (3.4-5.0) 06/03/18 05:45 RPR Titer Nonreactive (NONREACTIVE) 06/03/18 05:45 lab noted discuss alcohol misuse related to hepatic insults - Treatment Hospital Course: Detox Protocol Followed, Detoxed Safely, Responded well, Discharged Condition Good, Rehab Referral Accepted Patient has Accepted a Rehab Referral to: [facility] - Medication Discharge Medications: Ambulatory Orders Naloxone HCl [Narcan] 4 mg NS ASDIR PRN #1 spray 06/07/18 - Diagnosis (1) Opioid dependence with withdrawal Current Visit: Yes Status: Acute (2) Alcohol dependence with uncomplicated withdrawal Current Visit: Yes Status: Acute (3) Hepatitis C Current Visit: Yes Status: Chronic Qualifiers: Viral hepatitis chronicity: chronic Hepatic coma status: without hepatic coma Qualified Code(s): B18.2 - Chronic viral hepatitis C (4) Positive PPD Current Visit: Yes Status: Resolved - AMA Did Patient Leave Against Medical Advice: No
[2018-06-07] MEDS: PRENATAL VITAMINS W/ FOLIC ACID TABLET (FP) PO SCH (12:08)
[2018-06-07] MEDS: LIDOCAINE 5% TOPICAL PATCH TP SCH (12:08)
== END 2018-06-07 14:52 | disposition other institution (70) | DRG 773 ==
LOC: YASAS 11:36 → Y3N 14:40
PROVIDERS: ADMIT Surgery; ATTEND Surgery
PROC: HZ2ZZZZ Detoxification Services for Substance Abuse Treatment (ICD-10-PCS; principal; 2018-06-02)
DX: F11.23 Opioid dependence with withdrawal (principal); F10.230 Alcohol dependence with withdrawal, uncomplicated; B18.2 Chronic viral hepatitis C; R76.11 Nonspecific reaction to tuberculin skin test without active tuberculosis; D69.6 Thrombocytopenia, unspecified; E80.6 Other disorders of bilirubin metabolism
CPT/HCPCS: 36415; 80053; 82247; 85027; 86593; J0475

== ENCOUNTER 2018-06-07 14:38 | Inpatient (IN) | payer OTHER ==
[2018-06-07 15:28] VITALS: BMI 41.5
[2018-06-07] MEDS ORDERED: MAG HYDROX/AL HYDROX/SIMETH 30 ML UNIT-DOSE CUP PO PRN (15:28)
[2018-06-07] MEDS ORDERED: MAGNESIUM CITRATE 300 ML BOTTLE PO PRN (15:28)
[2018-06-07] MEDS ORDERED: P-EPHED 60MG/TRIPROLIDI 2.5MG TABLET PO PRN (15:28)
[2018-06-07] MEDS ORDERED: guaiFENesin/D-METHORPHAN HB 10 ML UNIT-DOSE CUPS PO PRN (15:28)
[2018-06-07] MEDS ORDERED: LOPERAMIDE HCL 2 MG CAPSULE PO PRN (15:28)
[2018-06-07] MEDS ORDERED: MENTHOL/PHENOL 1 EACH UD MM PRN (15:28)
--- NOTE | 2018-06-07 15:28 | HP ---
[facility] Rehab Assess/Revision - Admission History Admitted to Rehab from: [facility] Date of Admission to Rehab: 06/07/18 - Vital signs Vital Signs: Vital Signs Period Temp Pulse Resp BP Sys/[place] Pulse Ox Last 24 Hr 96.5 F 69 17 104/72 - Findings Detox History & Physical reviewed: Yes Concur with findings: Yes Comments/Additional Findings: transferred from detox to rehab admission as per protocol Inpatient Rehab Admission - Rehab Decision to Admit Inpatient rehab admission?: Yes - Initial Determination Are CD services needed?: Yes Free of communicable disease: Yes Not in need of hospitalization: Yes - Rehab Admission Criteria Previous failed treatment: Yes Poor recovery environment: Yes Comorbidities: Yes Lacks judgement: No Patient is meeting Inpatient Rehab admission criteria:: Yes
[2018-06-07] MEDS: MELATONIN 5 MG TABLETS PO PRN (21:29)
[2018-06-07] MEDS: hydrOXYzine PAMOATE 50 MG CAPSULE (FP) PO PRN (21:29)
[2018-06-07] MEDS: IBUPROFEN 400 MG TABLET (FP) PO PRN (21:30)
[2018-06-07] MEDS: THIAMINE HCL 100 MG TABLET (FP) PO SCH (21:31)
[2018-06-07] MEDS: LIDOCAINE PATCH REMOVAL MC SCH (22:29)
[2018-06-08] MEDS: PRENATAL VITAMINS W/ FOLIC ACID TABLET (FP) PO SCH (10:45)
[2018-06-08] MEDS: LIDOCAINE 5% TOPICAL PATCH TP SCH (10:46)
[2018-06-08] MEDS: LIDOCAINE PATCH REMOVAL MC SCH (21:07)
[2018-06-08] MEDS: THIAMINE HCL 100 MG TABLET (FP) PO SCH (21:07)
[2018-06-08] MEDS: MELATONIN 5 MG TABLETS PO PRN (21:07)
[2018-06-08] MEDS: hydrOXYzine PAMOATE 50 MG CAPSULE (FP) PO PRN (21:08)
[2018-06-09] MEDS: PRENATAL VITAMINS W/ FOLIC ACID TABLET (FP) PO SCH (10:33)
[2018-06-09] MEDS: LIDOCAINE 5% TOPICAL PATCH TP SCH (10:33)
[2018-06-09] MEDS: hydrOXYzine PAMOATE 50 MG CAPSULE (FP) PO PRN (10:33)
[2018-06-09] MEDS: IBUPROFEN 400 MG TABLET (FP) PO PRN (10:33)
[2018-06-09] MEDS: LIDOCAINE PATCH REMOVAL MC SCH (21:52)
[2018-06-09] MEDS: MELATONIN 5 MG TABLETS PO PRN (21:55)
[2018-06-09] MEDS: MAGNESIUM HYDROX 2400MG/30ML ORAL SUSPENSION 30 ML CUP PO PRN (21:55)
[2018-06-09] MEDS: THIAMINE HCL 100 MG TABLET (FP) PO SCH (22:02)
--- NOTE | 2018-06-10 06:41 | CONSULT ---
[facility] Psychiatric Consult - Data Date of interview: 06/10/18 Admission source: Self-referred Identifying data: Mr Cruz is a 63 years old male, father of 2 children, unemployed on public assistance, homeless seeking inpatient rehab treatment for alcohol, opioid Substance Abuse History: Reports history of alcohol, heroin and street methadone use. Refer to addiction counselor's summary for further information Medical History: Significant for PPD+, history of treatment for PPD+, hepatitis C and orthosurgery for fracture right ankle. Psychiatric History: Reports that back in 2008 while in [facility], he saw a psychiatrist and was precribed medication for anxiety. Told radio script writer that he stopped taking that medication after a week because he was sleeping too much. he has no recollection of the name of that medication. Reports that whenever he is sober he developed a lot of anxiety. He said that he does not feel anxious now but he will eventually feel anxious in a few days. Physical/Sexual Abuse/Trauma History: Denies history of emotional, physical or sexual abuse as well as DV relationship Additional Comment: Reports history of multiple previous arrests including 7 felony convictions. Denies being on parole/probation currently Mental Status Exam - Mental Status Exam Alert and Oriented to: Time, Place, Person Patient Appearance: Well Groomed Mood: Hopeful, Euthymic Patient Behavior: Cooperative Speech Pattern: Clear Voice Loudness: Normal Thought Process: Intact, Goal Oriented Hallucinations: Denies Suicidal Ideation: Denies Homicidal Ideation: Denies Insight/Judgement: Fair Sleep: Poorly Appetite: Poor Muscle strength/Tone: Normal Gait/Station: Normal Psychiatric Findings - Problem List ([place] 1, 2,3) (1) Anxiety disorder Current Visit: Yes Status: Chronic (2) Substance-induced sleep disorder Current Visit: Yes Status: Acute (3) Alcohol dependence Current Visit: Yes Status: Acute (4) Opioid dependence Current Visit: Yes Status: Acute (5) Hepatitis C Current Visit: No Status: Resolved Qualifiers: Viral hepatitis chronicity: chronic Hepatic coma status: without hepatic coma Qualified Code(s): B18.2 - Chronic viral hepatitis C (6) Positive PPD Current Visit: No Status: Resolved - Initial Treatment Plan Initial Treatment Plan: 1) Start Belsomra 10 mg po HS prn for insomnia and Vistaril 50 mg po Q 4 hrs prn for anxiety. 2) Continue inpatient rehabilitation
--- NOTE | 2018-06-10 08:41 | PN ---
[facility] Progress Note Note: patient has been evaluated by the spanish tutor regular diet requested jpatient denies hypertension denies diabetes regular diet is suitable eight management
[2018-06-10] MEDS: LIDOCAINE 5% TOPICAL PATCH TP SCH (09:46)
[2018-06-10] MEDS: PRENATAL VITAMINS W/ FOLIC ACID TABLET (FP) PO SCH (09:46)
[2018-06-10] MEDS: LIDOCAINE PATCH REMOVAL MC SCH (21:07)
[2018-06-10] MEDS: MELATONIN 5 MG TABLETS PO PRN (21:08)
[2018-06-10] MEDS: THIAMINE HCL 100 MG TABLET (FP) PO SCH (21:08)
[2018-06-10] MEDS: MAGNESIUM HYDROX 2400MG/30ML ORAL SUSPENSION 30 ML CUP PO PRN (21:09)
[2018-06-11] MEDS: PRENATAL VITAMINS W/ FOLIC ACID TABLET (FP) PO SCH (10:17)
[2018-06-11] MEDS: LIDOCAINE 5% TOPICAL PATCH TP SCH (10:17)
[2018-06-11] MEDS: THIAMINE HCL 100 MG TABLET (FP) PO SCH (21:33)
[2018-06-11] MEDS: LIDOCAINE PATCH REMOVAL MC SCH (21:33)
[2018-06-11] MEDS: hydrOXYzine PAMOATE 50 MG CAPSULE (FP) PO PRN (21:33)
[2018-06-11] MEDS: MELATONIN 5 MG TABLETS PO PRN (21:33)
[2018-06-11] MEDS ORDERED: SUVOREXANT 10 MG TABLET PO PRN (22:00)
[2018-06-12] MEDS: PRENATAL VITAMINS W/ FOLIC ACID TABLET (FP) PO SCH (10:20)
[2018-06-12] MEDS: LIDOCAINE 5% TOPICAL PATCH TP SCH (10:20)
[2018-06-12] MEDS: LIDOCAINE PATCH REMOVAL MC SCH (23:21)
[2018-06-12] MEDS: THIAMINE HCL 100 MG TABLET (FP) PO SCH (23:22)
[2018-06-13] MEDS: LIDOCAINE 5% TOPICAL PATCH TP SCH (10:01)
[2018-06-13] MEDS: PRENATAL VITAMINS W/ FOLIC ACID TABLET (FP) PO SCH (10:02)
[2018-06-13] MEDS: ACETAMINOPHEN 325 MG TABLET (FP) PO PRN ×3 (10:02→21:39)
[2018-06-13] MEDS: THIAMINE HCL 100 MG TABLET (FP) PO SCH (21:39)
[2018-06-13] MEDS: MELATONIN 5 MG TABLETS PO PRN (21:39)
[2018-06-13] MEDS: LIDOCAINE PATCH REMOVAL MC SCH (21:39)
[2018-06-14] MEDS: LIDOCAINE 5% TOPICAL PATCH TP SCH (11:03)
[2018-06-14] MEDS: PRENATAL VITAMINS W/ FOLIC ACID TABLET (FP) PO SCH (11:04)
[2018-06-14] MEDS: ACETAMINOPHEN 325 MG TABLET (FP) PO PRN (19:58)
[2018-06-14] MEDS: hydrOXYzine PAMOATE 50 MG CAPSULE (FP) PO PRN (21:37)
[2018-06-14] MEDS: THIAMINE HCL 100 MG TABLET (FP) PO SCH (21:37)
[2018-06-14] MEDS: LIDOCAINE PATCH REMOVAL MC SCH (21:37)
[2018-06-14] MEDS: MELATONIN 5 MG TABLETS PO PRN (21:37)
[2018-06-15] MEDS: ACETAMINOPHEN 325 MG TABLET (FP) PO PRN ×2 (02:41→08:42)
[2018-06-15 06:30] VITALS: BP 135/85; PULSE 66; TEMP 97.8
--- NOTE | 2018-06-15 09:31 | PN ---
[facility] Progress Note Note: NOTIFIED BY RN THAT PATIENT REQUESTED EARLY DISCHARGE. UPON WAITING TO SEE PROVIDER, PATIENT WALKED OFF UNIT AND SAID " I CAN NOT WAIT. I HAVE THINGS TO DO." PATIENT WALKED OFF UNIT AND WENT TO SECURITY TO OBTAIN BELONGINGS BEFORE EVALUATION FROM [employer] OPERATOR HELPER. PATIENT SIGNED OUT AMA. PATIENT DOES NOT HAVE HOME MEDICATIONS TO BE SENT TO PHARMACY. Vital Signs Temperature 97.8 F 06/15/18 06:29 Pulse Rate 66 06/15/18 06:29 Respiratory Rate 18 06/15/18 06:29 Blood Pressure 135/85 06/15/18 06:29 O2 Sat by Pulse Oximetry (%)
== END 2018-06-15 09:35 | disposition left against medical advice (07) | DRG 770 ==
LOC: YASAS 14:38 → Y3W 14:39
PROVIDERS: ADMIT Neuromusculoskeletal Medicine & OMM; ATTEND Neuromusculoskeletal Medicine & OMM
PROC: HZ42ZZZ Group Counseling for Substance Abuse Treatment, Cognitive-Behavioral (ICD-10-PCS; principal; 2018-06-07)
DX: F11.20 Opioid dependence, uncomplicated (principal); F10.20 Alcohol dependence, uncomplicated; F41.9 Anxiety disorder, unspecified; F19.282 Other psychoactive substance dependence with psychoactive substance-induced sleep disorder; B18.2 Chronic viral hepatitis C; R76.11 Nonspecific reaction to tuberculin skin test without active tuberculosis

== ENCOUNTER 2018-06-27 11:39 | Inpatient (IN) | payer OTHER ==
[2018-06-27 12:33] VITALS: BMI 32.3
--- NOTE | 2018-06-27 13:59 | HP ---
COWS - Scale Resting Pulse: 0= [place] 80 or Below Sweatin= Chills/Flushing Restless Observation: 1= Difficult to Sit Still Pupil Size: 0= Normal to Room Light Bone or Joint Aches: 2= Severe Diffuse Aches Runny Nose/ Eye Tearin= Nasal Congestion GI Upset > 30mins: 1= Stomach Cramp Tremor Observation: 2= Slight Tremor Visible Yawning Observation: 1= 1-2x During Session Anxiety or Irritability: 2=Irritable/Anxious Goose Flesh Skin: 0=Smooth Skin COWS Score: 11 CIWA Score Nausea/Vomitin-Mild Nausea/No Vomiting Muscle Tremors: 4-Moderate,w/Arms Extend Anxiety: 4-Mod. Anxious/Guarded Agitation: 1-Slight > Activity Paroxysmal Sweats: 1-Minimal Palms Moist Orientation: 0-Oriented Tacttile Disturbances: 1-Very Mild Itch/Numbness Auditory Disturbances: 1-Very Mild Visual Disturbances: 1-Very Mild Sensitivity Headache: 2-Mild CIWA-Ar Total Score: 16 - Admission Criteria [facility] Guidelines: Admission for Medically Managed Detox: Requires at least one of the followin. CIWA greater than 12 2. Seizures within the past 24 hours 3. Delirium tremens within the past 24 hours 4. Hallucinations within the past 24 hours 5. Acute intervention needed for co occurring medical disorder 6. Acute intervention needed for co occurring psychiatric disorder 7. Severe withdrawal that cannot be handled at a lower level of care (continued vomiting, continued diarrhea, abnormal vital signs) requiring intravenous medication and/or fluids 8. Patient presents the following: CIWA greater than 12 Admission Criteria Met: Admission criteria met Admission ROS [facility] Chief Complaint: If I don't get help, I'll wind up or in alf, I can't do it anymore, it's gets so I shake so much I can't even dial a phone or hold a pencil. Allergies/Adverse Reactions: Allergies Allergy/AdvReac Type Severity Reaction Status Date / Time No Known Allergies Allergy Verified 06/02/18 14:13 History of Present Illness: 63 yo gentleman here for detox from heroin and alcohol - longest time sober 3.5 years when in alf. States history of methadone program in the 1980s (140mg). Denies seizures but has had an overdose. Currently homeless, lives in his car, wants a residential program. Was here for detox 06/02/18-06/07/18 then went to rehab where he left AMA on 06/15/18 - admits this was a mistake. He states he ' drinks all day, morning, noon and night'. urine tox + bzo - states does not use separately, likely mixed with heroin Exam Limitations: No Limitations - Ebola screening Have you traveled outside of the country in the last 21 days: No (N) Have you had contact with anyone from an Ebola affected area: No Have you been sick,other than usual withdrawal symptoms: No Do you have a fever: No - Review of Systems Constitutional: Loss of Appetite, Night Sweats, Changes in sleep, Weakness EENT: reports: Blurred Vision, Nose Congestion Respiratory: reports: No Symptoms reported Cardiac: reports: No Symptoms Reported GI: reports: Diarrhea, Nausea, Poor Appetite, Poor Fluid Intake, Indigestion, Abdominal cramping : reports: Dysuria Musculoskeletal: reports: Back Pain, Muscle Pain Integumentary: reports: No Symptoms Reported Neuro: reports: Headache, Tremors Hematology: reports: No Symptoms Reported Psychiatric: reports: Judgement Intact, Mood/Affect Appropiate, Orientated x3, Anxious Other Systems: Reviewed and Negative Patient History - Patient Medical History Hx Anemia: No Hx Asthma: No Hx Chronic Obstructive Pulmonary Disease (COPD): No Hx Cancer: No Hx Cardiac Disorders: No Hx Congestive Heart Failure: No Hx Hypertension: No Hx Hypercholesterolemia: No Hx Pacemaker: No HX Cerebrovascular Accident: No Hx Seizures: No Hx Dementia: No Hx Diabetes: No Hx Gastrointestinal Disorders: No Hx Liver Disease: No Hx Genitourinary Disorders: No Hx Sexually Transmitted Disorders: No Hx Renal Disease (ESRD): No Hx Thyroid Disease: No Hx Human Immunodeficiency Virus (HIV): No (last 2016) Hx Hepatitis C: Yes (treated in [facility] but thinks it did not work) Hx Depression: No Hx Suicide Attempt: No Hx Bipolar Disorder: No Hx Schizophrenia: No Other Medical History: back pain - Patient Surgical History Past Surgical History: No Hx Neurologic Surgery: No Hx Cataract Extraction: No Hx Cardiac Surgery: No Hx Lung Surgery: No Hx Breast Surgery: No Hx Breast Biopsy: No Hx Abdominal Surgery: No Hx Appendectomy: No Hx Cholecystectomy: No Hx Genitourinary Surgery: No Hx Section: No Hx Orthopedic Surgery: No Anesthesia Reaction: No - PPD History Previous Implant?: Yes Documented Results: Positive w/o proof (treated) Implanted On Prior R Admission?: No Date: 04/17/18 (neg cxr) PPD to be Administered?: No - Reproductive History Patient is a Female of Child Bearing Age (11 -55 yrs old): No (male) - Smoking Cessation Smoking history: Never smoked Have you smoked in the past 12 months: No Hx Chewing Tobacco Use: No Initiated information on smoking cessation: No - Substance & Tx. History Hx Alcohol Use: Yes Hx Substance Use: Yes Substance Use Type: Alcohol Hx Substance Use Treatment: Yes - Substances Abused alcohol Route: Oral Frequency: Daily Amount used: eight six packs 12 oz beer Age of first use: 19 Date of Last Use: 06/27/18 heroin Route: Inhalation Frequency: Daily Amount used: 15 bags Age of first use: 19 Date of Last Use: 06/27/18 Family Disease History - Family Disease History Family Disease History: Other: Father (, never knew him), Mother ( - no contact for 20 years), Brother (one - - shot), Sister ( one - drugs), Son (one - age 41 healthy), Daughter (one age 40 - healthy) Admission Physical Exam S - Vital Signs Vital Signs: Vital Signs - 24 hr 06/27/18 12:31 Temperature 96.6 F L Pulse Rate 63 Respiratory 20 Rate Blood Pressure 125/74 - Physical General Appearance: Yes: Nourished, Appropriately Dressed, Moderate Distress, Tremorous, Anxious HEENTM: Yes: EOMI, Hearing grossly Normal, Normal ENT Inspection, Normocephalic , Normal Voice, Nasal Congestion Respiratory: Yes: Normal Breath Sounds, No Respiratory Distress Neck: Yes: No masses,lesions,Nodules, Supple Breast: Yes: Breast Exam Deferred Cardiology: Yes: Regular Rhythm, Regular Rate Abdominal: Yes: Soft Genitourinary: Yes: Dysuria Back: Yes: Normal Inspection Musculoskeletal: Yes: full range of Motion, Gait Steady, Back pain, Muscle Pain Extremities: Yes: Normal Inspection, Normal Range of Motion, Non-Tender Neurological: Yes: Fully Oriented, Alert, Motor Strength 5/5, Normal Mood/Affect , Normal Response Integumentary: Yes: Normal Color, Warm Lymphatic: Yes: Within Normal Limits - Diagnostic (1) Alcohol dependence with uncomplicated withdrawal Current Visit: Yes Status: Chronic (2) Opioid dependence with withdrawal Current Visit: Yes Status: Chronic (3) Thrombocytopenia Current Visit: Yes Status: Chronic (4) Hepatitis C Current Visit: Yes Status: Resolved Qualifiers: Viral hepatitis chronicity: chronic Hepatic coma status: without hepatic coma Qualified Code(s): B18.2 - Chronic viral hepatitis C (5) PPD positive, treated Current Visit: Yes Status: Resolved Cleared for Admission [facility] - Detox or Rehab [facility] Level of Care: Medically Managed Detox Regimen/Protocol: Methadone [facility] Breath Alcohol Content Breath Alcohol Content: 0.073 Urine Drug Screen - Results Drug Screen Negative: No Urine Drug Screen Results: OPI-Opiates, BZO-Benzodiazepines, FEN-Fentanyl Inpatient Rehab Admission - Rehab Decision to Admit Inpatient rehab admission?: No
[2018-06-27] MEDS ORDERED: BISMUTH SUBSALICYLATE 524 MG/30 ML UD PO PRN (14:07)
[2018-06-27] MEDS ORDERED: MAGNESIUM HYDROX 2400MG/30ML ORAL SUSPENSION 30 ML CUP PO PRN (14:07)
[2018-06-27] MEDS ORDERED: MENTHOL/PHENOL 1 EACH UD MM PRN (14:07)
[2018-06-27] MEDS ORDERED: IBUPROFEN 400 MG TABLET (FP) PO PRN (14:07)
[2018-06-27] MEDS ORDERED: chlordiazePOXIDE HCL 25 MG CAPSULE PO PRN (14:07)
[2018-06-27] MEDS ORDERED: cloNIDine HCL 0.1 MG TABLET PO PRN (14:07)
[2018-06-27] MEDS ORDERED: ACETAMINOPHEN 325 MG TABLET (FP) PO PRN (14:07)
[2018-06-27] MEDS ORDERED: MAGNESIUM CITRATE 300 ML BOTTLE PO PRN (14:07)
[2018-06-27] MEDS ORDERED: MAG HYDROX/AL HYDROX/SIMETH 30 ML UNIT-DOSE CUP PO PRN (14:07)
[2018-06-27] MEDS ORDERED: BACLOFEN 10 MG TABLET (FP) PO PRN (14:11)
[2018-06-27] MEDS ORDERED: LIDOCAINE 5% TOPICAL PATCH TP SCH (14:15)
[2018-06-27] MEDS: chlordiazePOXIDE HCL 25 MG CAPSULE PO SCH ×2 (18:27→22:15)
[2018-06-27] MEDS: LIDOCAINE 5% TOPICAL PATCH TP SCH (21:16)
[2018-06-27] MEDS: LIDOCAINE PATCH REMOVAL MC SCH (22:15)
[2018-06-27] MEDS: THIAMINE HCL 100 MG TABLET (FP) PO SCH (22:15)
[2018-06-27] MEDS: MELATONIN 5 MG TABLETS PO PRN (22:15)
[2018-06-27] MEDS ORDERED: METHADONE HCL 10 MG TABLET (FOR DETOX USE ONLY) PO ONE (23:00)
[2018-06-28] MEDS: chlordiazePOXIDE HCL 25 MG CAPSULE PO SCH ×4 (05:42→22:20)
[2018-06-28] MEDS ORDERED: METHADONE HCL 10 MG TABLET (FOR DETOX USE ONLY) PO ONE (10:00)
[2018-06-28] MEDS: PRENATAL VITAMINS W/ FOLIC ACID TABLET (FP) PO SCH (10:20)
[2018-06-28 10:44] LABS: ALBUMIN 3.3 g/dl (3.4-5.0); ALK PHOS 87 U/L (45-117); ANION GAP 6 MMOL/L (8-16); BILIRUBIN,TOTAL 1.3 mg/dL (0.2-1); BLOOD UREA NITROGEN 10 mg/dL (7-18); CALCIUM 8.6 mg/dL (8.5-10.1); CHLORIDE 106 mmol/L (98-107); CO2 28 mmol/L (21-32); CREATININE 0.8 mg/dL (0.55-1.3); GLUCOSE,RANDOM 106 mg/dL (74-106); POTASSIUM 3.9 mmol/L (3.5-5.1); SGOT/AST 40 U/L (15-37); SGPT/ALT 21 U/L (13-61); SODIUM 141 mmol/L (136-145); TOT PROT 7.2 g/dl (6.4-8.2)
[2018-06-28 11:04] LABS: HEMATOCRIT 39.2 % (35.4-49); HEMOGLOBIN 13.8 GM/dL (11.7-16.9); MCH 33.9 pg (25.7-33.7); MCHC 35.2 g/dl (32.0-35.9); MEAN CELL VOLUME 96.2 fl (80-96); PLATELET COUNT 109 K/MM3 (134-434); RBC 4.08 M/mm3 (4.00-5.60); RDW 13.6 % (11.9-15.9); WHITE BLOOD COUNT 3.9 K/mm3 (4.0-10.0)
[2018-06-28] MEDS: LIDOCAINE 5% TOPICAL PATCH TP SCH (12:49)
--- NOTE | 2018-06-28 15:34 | PN ---
S CIWA - CIWA Score Nausea/Vomitin Muscle Tremors: 4-Moderate,w/Arms Extend Anxiety: 4-Mod. Anxious/Guarded Agitation: 4-Moderately Restless Paroxysmal Sweats: 3 Orientation: 0-Oriented Tacttile Disturbances: 0-None Auditory Disturbances: 0-None Visual Disturbances: 0-None Headache: 0-None Present CIWA-Ar Total Score: 17 [facility] COWS - Scale Resting Pulse: 0= [place] 80 or Below Sweatin= Chills/Flushing Restless Observation: 3= Extraneous Movement Pupil Size: 0= Normal to Room Light Bone or Joint Aches: 2= Severe Diffuse Aches Runny Nose/ Eye Tearin= Runny Nose/Eyes GI Upset > 30mins: 3= Vomiting/Diarrhea Tremor Observation of Outstretched Hands: 2= Slight Tremor Visible Yawning Observation: 0= None Anxiety or Irritability: 2=Irritable/Anxious Goose Flesh Skin: 0=Smooth Skin COWS Score: 15 S Progress Note (SOAP) Subjective: Sweating, interrupted sleep Objective: 06/28/18 15:31 Last Vital Signs Temp Pulse Resp BP Pulse Ox 98.7 F 66 16 120/74 06/28/18 13:12 06/28/18 13:12 06/28/18 13:12 06/28/18 13:12 Laboratory Tests 06/28/18 06/28/18 06/28/18 07:20 07:20 07:20 WBC 3.9 L RBC 4.08 Hgb 13.8 Hct 39.2 MCV 96.2 H MCH 33.9 H MCHC 35.2 RDW 13.6 Plt Count 109 L MPV 9.0 D Sodium 141 Potassium 3.9 Chloride 106 Carbon Dioxide 28 Anion Gap 6 L BUN 10 Creatinine 0.8 Creat Clearance w eGFR 97.63 Random Glucose 106 Calcium 8.6 Total Bilirubin 1.3 H AST 40 H ALT 21 Alkaline Phosphatase 87 Total Protein 7.2 Albumin 3.3 L RPR Titer Nonreactive Labs reviewed: plt 109, total bilirubin 1.3 Assessment: 06/28/18 15:32 Withdrawal symptoms Noted with thrombocytopenia and elevated total bilirubin Plan: Continue detox Encouraged PO water hydration Thrombocytopenia: most likely due to alcohol dependence, follow up with PCP for monitoring Elevated total bilirubin: could be r/t chronic alcoholism, repeat total bilirubin level in AM
[2018-06-28] MEDS: MELATONIN 5 MG TABLETS PO PRN (22:20)
[2018-06-28] MEDS: THIAMINE HCL 100 MG TABLET (FP) PO SCH (22:20)
[2018-06-28] MEDS: LIDOCAINE PATCH REMOVAL MC SCH (22:39)
[2018-06-29] MEDS: chlordiazePOXIDE HCL 25 MG CAPSULE PO SCH ×2 (05:10→10:26)
[2018-06-29] MEDS ORDERED: METHADONE HCL 10 MG TABLET (FOR DETOX USE ONLY) PO ONE (10:00)
[2018-06-29] MEDS: LIDOCAINE 5% TOPICAL PATCH TP SCH (10:26)
[2018-06-29] MEDS: PRENATAL VITAMINS W/ FOLIC ACID TABLET (FP) PO SCH (10:26)
[2018-06-29] MEDS ORDERED: chlordiazePOXIDE HCL 10 MG CAPSULE PO PRN (17:00)
[2018-06-29] MEDS: chlordiazePOXIDE HCL 10 MG CAPSULE PO SCH ×2 (18:19→22:18)
--- NOTE | 2018-06-29 19:53 | PN ---
[facility] CIWA - CIWA Score Nausea/Vomitin-No Nausea/No Vomiting Muscle Tremors: None Anxiety: 3 Agitation: 1-Slight > Activity Paroxysmal Sweats: 3 Orientation: 0-Oriented Tacttile Disturbances: 2-Mild Itch/Numbness/Burn Auditory Disturbances: 0-None Visual Disturbances: 2-Mild Sensitivity Headache: 0-None Present CIWA-Ar Total Score: 11 S COWS - Scale Resting Pulse: 0= TX 80 or Below Sweatin= Chills/Flushing Restless Observation: 0= Sits Still Pupil Size: 0= Normal to Room Light Bone or Joint Aches: 2= Severe Diffuse Aches Runny Nose/ Eye Tearin= Nasal Congestion GI Upset > 30mins: 0= None Tremor Observation of Outstretched Hands: 0= None Yawning Observation: 1= 1-2x During Session Anxiety or Irritability: 2=Irritable/Anxious Goose Flesh Skin: 3=Piloerection COWS Score: 10 S Progress Note (SOAP) Subjective: Sweating, Body Aches, Interrupted Sleep. Objective: PATIENT A & O X 3, OBSERVED AMBULATING ON UNIT. IN NO ACUTE DISTRESS. 06/29/18 19:48 Vital Signs Temperature 98.1 F 06/29/18 17:43 Pulse Rate 53 L 06/29/18 17:43 Respiratory Rate 16 06/29/18 17:43 Blood Pressure 123/68 06/29/18 17:43 O2 Sat by Pulse Oximetry (%) Laboratory Tests 06/28/18 06/28/18 06/28/18 07:20 07:20 07:20 WBC 3.9 L RBC 4.08 Hgb 13.8 Hct 39.2 MCV 96.2 H MCH 33.9 H MCHC 35.2 RDW 13.6 Plt Count 109 L MPV 9.0 D Sodium 141 Potassium 3.9 Chloride 106 Carbon Dioxide 28 Anion Gap 6 L BUN 10 Creatinine 0.8 Creat Clearance w eGFR 97.63 Random Glucose 106 Calcium 8.6 Total Bilirubin 1.3 H AST 40 H ALT 21 Alkaline Phosphatase 87 Total Protein 7.2 Albumin 3.3 L RPR Titer Nonreactive 06/29/18 07:00 WBC RBC Hgb Hct MCV MCH MCHC RDW Plt Count MPV Sodium Potassium Chloride Carbon Dioxide Anion Gap BUN Creatinine Creat Clearance w eGFR Random Glucose Calcium Total Bilirubin 1.7 H AST ALT Alkaline Phosphatase Total Protein Albumin RPR Titer LABS NOTED. PATIENT HAS HAD LOW PLATELET LEVELS ON PREVIOUS ADMISSION. RESULT OF REPEAT TOTAL BILIRUBIN LEVEL NOTED. PATIENT HAS HAD ELEVATED TOTAL BILIRUBIN ON PREVIOUS ADMISSIONS. 06/29/18 19:50 Assessment: 06/29/18 19:48 WITHDRAWAL SYMPTOMS. THROMBOCYTOPENIA. HYPERBILIRUBINEMIA. 06/29/18 19:49 Plan: CONTINUE DETOX.
[2018-06-29] MEDS: THIAMINE HCL 100 MG TABLET (FP) PO SCH (22:18)
[2018-06-29] MEDS: LIDOCAINE PATCH REMOVAL MC SCH (22:19)
[2018-06-30] MEDS: chlordiazePOXIDE HCL 10 MG CAPSULE PO SCH ×3 (05:43→17:21)
[2018-06-30] MEDS ORDERED: METHADONE HCL 10 MG TABLET (FOR DETOX USE ONLY) PO ONE (10:00)
[2018-06-30] MEDS: PRENATAL VITAMINS W/ FOLIC ACID TABLET (FP) PO SCH (10:41)
[2018-06-30] MEDS: METHOCARBAMOL 500 MG TABLET PO PRN ×2 (10:42→22:58)
[2018-06-30] MEDS: LIDOCAINE 5% TOPICAL PATCH TP SCH (10:45)
--- NOTE | 2018-06-30 11:07 | PN ---
[facility] Progress Note (SOAP) Subjective: sweats agitation low back pain Objective: 06/30/18 11:06 Vital Signs Temperature 98.3 F 06/30/18 09:30 Pulse Rate 55 L 06/30/18 09:30 Respiratory Rate 18 06/30/18 09:30 Blood Pressure 139/99 06/30/18 09:30 O2 Sat by Pulse Oximetry (%) [id number] ambulating no acute distress Assessment: 06/30/18 11:06 withdrawal sx Plan: continue detox increase fluids d/c in am
[2018-06-30] MEDS: THIAMINE HCL 100 MG TABLET (FP) PO SCH (22:31)
[2018-06-30] MEDS: MELATONIN 5 MG TABLETS PO PRN (22:32)
[2018-06-30] MEDS: LIDOCAINE PATCH REMOVAL MC SCH (22:57)
[2018-07-01] MEDS: chlordiazePOXIDE HCL 10 MG CAPSULE PO SCH (05:35)
[2018-07-01] MEDS ORDERED: METHADONE HCL 5 MG TABLET (FOR DETOX USE ONLY) PO ONE (06:00)
--- NOTE | 2018-07-01 09:15 | DS ---
[facility] Detox Discharge Summary Admission Date: 06/27/18 Discharge Date: 07/01/18 - History Present History: Alcohol Dependence, Opioid Dependence - Physical Exam Results Vital Signs: Vital Signs Temperature 97.7 F 07/01/18 07:21 Pulse Rate 49 L 07/01/18 07:21 Respiratory Rate 18 07/01/18 07:21 Blood Pressure 121/75 07/01/18 07:21 O2 Sat by Pulse Oximetry (%) - Treatment Hospital Course: Detox Protocol Followed, Detoxed Safely, Responded well, Discharged Condition Good, Rehab Referral Accepted - Medication Discharge Medications: Ambulatory Orders NK [No Known Home Medication] 06/27/18 - Diagnosis (1) Alcohol dependence with uncomplicated withdrawal Current Visit: Yes Status: Chronic (2) Opioid dependence with withdrawal Current Visit: Yes Status: Chronic (3) Thrombocytopenia Current Visit: Yes Status: Chronic (4) Hepatitis C Current Visit: Yes Status: Chronic Qualifiers: Viral hepatitis chronicity: chronic Hepatic coma status: without hepatic coma Qualified Code(s): B18.2 - Chronic viral hepatitis C (5) PPD positive, treated Current Visit: Yes Status: Resolved (6) Hyperbilirubinemia Current Visit: No Status: Acute (7) Substance-induced sleep disorder Current Visit: No Status: Acute (8) Anxiety disorder Current Visit: No Status: Chronic (9) Positive PPD Current Visit: No Status: Resolved - AMA Did Patient Leave Against Medical Advice: No (referred to inpatient rehab/[facility] outpatient)
[2018-07-01 09:54] VITALS: BP 144/89; PULSE 56; TEMP 97.2
[2018-07-01] MEDS: PRENATAL VITAMINS W/ FOLIC ACID TABLET (FP) PO SCH (11:04)
[2018-07-01] MEDS: LIDOCAINE 5% TOPICAL PATCH TP SCH (11:05)
== END 2018-07-01 11:27 | disposition home or self-care (01) | DRG 773 ==
LOC: YASAS 11:39 → Y6N 18:00
PROVIDERS: ADMIT Surgery; ATTEND Surgery
PROC: HZ2ZZZZ Detoxification Services for Substance Abuse Treatment (ICD-10-PCS; principal; 2018-06-27)
DX: F11.23 Opioid dependence with withdrawal (principal); F10.230 Alcohol dependence with withdrawal, uncomplicated; F19.282 Other psychoactive substance dependence with psychoactive substance-induced sleep disorder; F41.9 Anxiety disorder, unspecified; D69.6 Thrombocytopenia, unspecified; B18.2 Chronic viral hepatitis C; R76.11 Nonspecific reaction to tuberculin skin test without active tuberculosis; E80.7 Disorder of bilirubin metabolism, unspecified
CPT/HCPCS: 36415; 80053; 82247; 85027; 86593; J0475

== ENCOUNTER 2018-08-17 15:33 | Inpatient (IN) | payer OTHER ==
[2018-08-17 17:48] VITALS: BMI 31.4
--- NOTE | 2018-08-17 18:42 | HP ---
CIWA Score Nausea/Vomitin-Mild Nausea/No Vomiting Muscle Tremors: 3 Anxiety: 3 Agitation: 3 Paroxysmal Sweats: No Perspiration Orientation: 1-Uncertain about Date Tacttile Disturbances: 1-Very Mild Itch/Numbness Auditory Disturbances: 1-Very Mild Visual Disturbances: 1-Very Mild Sensitivity Headache: 2-Mild CIWA-Ar Total Score: 16 - Admission Criteria OASAS Guidelines: Admission for Medically Managed Detox: Requires at least one of the followin. CIWA greater than 12 2. Seizures within the past 24 hours 3. Delirium tremens within the past 24 hours 4. Hallucinations within the past 24 hours 5. Acute intervention needed for co occurring medical disorder 6. Acute intervention needed for co occurring psychiatric disorder 7. Severe withdrawal that cannot be handled at a lower level of care (continued vomiting, continued diarrhea, abnormal vital signs) requiring intravenous medication and/or fluids 8. Admission ROS [facility] Chief Complaint: WITHDRAWAL SYMPTOMS Allergies/Adverse Reactions: Allergies Allergy/AdvReac Type Severity Reaction Status Date / Time No Known Allergies Allergy Verified 08/17/18 17:32 History of Present Illness: 63 Y.O. MAN WITH AN EXTENSIVE HISTORY OF ALCOHOL AND HEROIN DEPENDENCE IS SEEKING DETOX SERVICES. HE IS CURRENTLY RECEIVING TREATMENT FOR HEROIN DEPENDENCE AT [facility] AND IS PRESCRIBED SUBOXONE 8/2MB BID (VERIFIED BY ADJUNCT PSYCHOLOGY FACULTY MEMBER). DOES NOT HAVE A SIGNIFICANT PERIOD OF SOBRIETY. UTOX +buprenorphine . Exam Limitations: No Limitations - Ebola screening Have you traveled outside of the country in the last 21 days: No Have you had contact with anyone from an Ebola affected area: No Do you have a fever: No - Review of Systems Constitutional: Chills, Night Sweats EENT: reports: No Symptoms Reported Respiratory: reports: No Symptoms reported Cardiac: reports: No Symptoms Reported GI: reports: No Symptoms Reported : reports: No Symptoms Reported Musculoskeletal: reports: Back Pain Integumentary: reports: No Symptoms Reported Neuro: reports: Headache, Tremors Endocrine: reports: No Symptoms Reported Hematology: reports: No Symptoms Reported Psychiatric: reports: Anxious Other Systems: Reviewed and Negative Patient History - Patient Medical History Hx Anemia: No Hx Asthma: No Hx Chronic Obstructive Pulmonary Disease (COPD): No Hx Cancer: No Hx Cardiac Disorders: No Hx Congestive Heart Failure: No Hx Hypertension: No Hx Hypercholesterolemia: No Hx Pacemaker: No HX Cerebrovascular Accident: No Hx Seizures: No Hx Dementia: No Hx Diabetes: No Hx Gastrointestinal Disorders: No Hx Liver Disease: No Hx Genitourinary Disorders: No Hx Sexually Transmitted Disorders: No Hx Renal Disease (ESRD): No Hx Thyroid Disease: No Hx Human Immunodeficiency Virus (HIV): No (last 2016) Hx Hepatitis C: Yes Hx Depression: No Hx Suicide Attempt: No Hx Bipolar Disorder: No Hx Schizophrenia: No - Patient Surgical History Past Surgical History: No Hx Neurologic Surgery: No Hx Cataract Extraction: No Hx Cardiac Surgery: No Hx Lung Surgery: No Hx Breast Surgery: No Hx Breast Biopsy: No Hx Abdominal Surgery: No Hx Appendectomy: No Hx Cholecystectomy: No Hx Genitourinary Surgery: No Hx Section: No Hx Orthopedic Surgery: No Anesthesia Reaction: No - PPD History Date: 04/17/18 Results: cxr(-)04/17/2018 PPD to be Administered?: No - Reproductive History Patient is a Female of Child Bearing Age (11 -55 yrs old): No - Smoking Cessation Smoking history: Never smoked Have you smoked in the past 12 months: No Hx Chewing Tobacco Use: No Initiated information on smoking cessation: No - Substance & Tx. History Hx Alcohol Use: Yes Hx Substance Use: Yes Substance Use Type: Alcohol, Heroin Hx Substance Use Treatment: Yes (DETOX AND REHAB:06/2018) - Substances abused Alcohol Substance route: Oral Frequency: Daily Amount used: 30 BOTTLES OF 12 OZ Age of first use: 19 Date of last use: 08/17/18 Family Disease History - Family Disease History Family Disease History: Other: Father (, never knew him), Mother ( - no contact for 20 years), Brother (one - - shot), Sister ( one - drugs), Son (one - age 41 healthy), Daughter (one age 40 - healthy) Admission Physical Exam S - Vital Signs Vital Signs: Vital Signs - 24 hr 08/17/18 08/17/18 17:31 17:57 Temperature 98.0 F 98.0 F Pulse Rate 73 73 Respiratory 18 18 Rate Blood Pressure 133/90 133/90 - Physical General Appearance: Yes: Irritable, Sweating, Anxious HEENTM: Yes: Hearing grossly Normal, Normocephalic Respiratory: Yes: Chest Non-Tender, Lungs Clear, Normal Breath Sounds, No Respiratory Distress, No Accessory Muscle Use Neck: Yes: No masses,lesions,Nodules Breast: Yes: Breast Exam Deferred Cardiology: Yes: Regular Rhythm, Regular Rate Abdominal: Yes: Normal Bowel Sounds, Non Tender, Flat, Soft Genitourinary: Yes: Within Normal Limits Musculoskeletal: Yes: full range of Motion, Gait Steady Extremities: Yes: Normal Capillary Refill, Normal Inspection, Normal Range of Motion, Non-Tender Neurological: Yes: Alert, Normal Mood/Affect, Normal Response Integumentary: Yes: Normal Color, Warm Lymphatic: Yes: Within Normal Limits - Diagnostic (1) Opioid dependence on agonist therapy Current Visit: Yes Status: Chronic Comment: PRESCRIBED SUBOXONE (2) Alcohol dependence with uncomplicated withdrawal Current Visit: Yes Status: Chronic (3) Hepatitis C Current Visit: Yes Status: Chronic Qualifiers: Viral hepatitis chronicity: chronic Hepatic coma status: without hepatic coma Qualified Code(s): B18.2 - Chronic viral hepatitis C (4) Positive PPD Current Visit: Yes Status: Chronic Cleared for Admission S - Detox or Rehab S Level of Care: Medically Managed Detox Regimen/Protocol: Librium Breathalyzer - Breathalyzer Breathalyzer: 0.081 Urine Drug Screen - Test Device Lot number: [id number] Expiration date: 05/07/20 - Control Is test valid?: Yes - Results Drug screen NEGATIVE: No Urine drug screen results: BUP-Suboxone Inpatient Rehab Admission - Rehab Decision to Admit Inpatient rehab admission?: No
[2018-08-17] MEDS ORDERED: chlordiazePOXIDE HCL 25 MG CAPSULE PO ONE (18:43)
[2018-08-17] MEDS ORDERED: METHOCARBAMOL 500 MG TABLET PO PRN (18:43)
[2018-08-17] MEDS ORDERED: hydrOXYzine PAMOATE 50 MG CAPSULE (FP) PO PRN (18:43)
[2018-08-17] MEDS ORDERED: BISMUTH SUBSALICYLATE 262 MG/15 ML BTL PO PRN (18:43)
[2018-08-17] MEDS ORDERED: MENTHOL/PHENOL 1 EACH UD MM PRN (18:43)
[2018-08-17] MEDS ORDERED: ONDANSETRON *ODT* 4 MG TABLET SL PRN (18:43)
[2018-08-17] MEDS ORDERED: MAG HYDROX/AL HYDROX/SIMETH 30 ML UNIT-DOSE CUP PO PRN (18:43)
[2018-08-17] MEDS ORDERED: ACETAMINOPHEN 325 MG TABLET (FP) PO PRN ×2 (18:43)
[2018-08-17] MEDS ORDERED: IBUPROFEN 400 MG TABLET (FP) PO PRN (18:43)
[2018-08-17] MEDS ORDERED: MAGNESIUM CITRATE 300 ML BOTTLE PO PRN (18:43)
[2018-08-17] MEDS ORDERED: MAGNESIUM HYDROX 2400MG/30ML ORAL SUSPENSION 30 ML CUP PO PRN (18:43)
[2018-08-17] MEDS ORDERED: chlordiazePOXIDE HCL 25 MG CAPSULE PO PRN (18:43)
[2018-08-17] MEDS: GABAPENTIN 400 MG CAPSULE (FP) PO SCH ×2 (19:35→22:21)
[2018-08-17] MEDS: BUPRENORPHINE/NALOXONE 8 MG/2 MG FILM PACKET SL SCH (22:21)
[2018-08-17] MEDS: chlordiazePOXIDE HCL 25 MG CAPSULE PO SCH (22:21)
[2018-08-17] MEDS: THIAMINE HCL 100 MG TABLET (FP) PO SCH (22:22)
[2018-08-18] MEDS: GABAPENTIN 400 MG CAPSULE (FP) PO SCH ×3 (05:53→22:04)
[2018-08-18] MEDS: chlordiazePOXIDE HCL 25 MG CAPSULE PO SCH ×4 (05:53→22:04)
--- NOTE | 2018-08-18 10:13 | PN ---
S CIWA - CIWA Score Nausea/Vomitin Muscle Tremors: 3 Anxiety: 2 Agitation: 2 Paroxysmal Sweats: 1-Minimal Palms Moist Orientation: 0-Oriented Tacttile Disturbances: 1-Very Mild Itch/Numbness Auditory Disturbances: 1-Very Mild Visual Disturbances: 0-None Headache: 2-Mild CIWA-Ar Total Score: 14 BHS Progress Note (SOAP) Subjective: alert,irritable,anxious,interrupted sleep,tremor Objective: 08/18/18 10:12 Vital Signs Temperature 98 F 08/18/18 09:25 Pulse Rate 67 08/18/18 09:25 Respiratory Rate 20 08/18/18 09:25 Blood Pressure 114/80 08/18/18 09:25 O2 Sat by Pulse Oximetry (%) labs pending Assessment: 08/18/18 10:13 withdrawal symptom Plan: continue detox
[2018-08-18] MEDS: PRENATAL VITAMINS W/ FOLIC ACID TABLET (FP) PO SCH (10:50)
[2018-08-18] MEDS: BUPRENORPHINE/NALOXONE 8 MG/2 MG FILM PACKET SL SCH ×2 (10:50→22:04)
[2018-08-18 12:31] LABS: HEMATOCRIT 41.2 % (35.4-49); HEMOGLOBIN 13.9 GM/dL (11.7-16.9); MCH 33.3 pg (25.7-33.7); MCHC 33.7 g/dl (32.0-35.9); MEAN CELL VOLUME 98.9 fl (80-96); MEAN PLT VOLUME 10.1 fl (7.5-11.1); PLATELET COUNT 114 K/MM3 (134-434); RBC 4.17 M/mm3 (4.00-5.60); RDW 15.4 % (11.9-15.9); WHITE BLOOD COUNT 6.5 K/mm3 (4.0-10.0)
[2018-08-18 12:33] LABS: ALBUMIN 3.3 g/dl (3.4-5.0); BILIRUBIN,TOTAL 1.7 mg/dL (0.2-1); CALCIUM 8.9 mg/dL (8.5-10.1); CREATININE 0.7 mg/dL (0.55-1.3); POTASSIUM 3.8 mmol/L (3.5-5.1); TOT PROT 7.3 g/dl (6.4-8.2)
[2018-08-18] MEDS: THIAMINE HCL 100 MG TABLET (FP) PO SCH (22:04)
[2018-08-19] MEDS: chlordiazePOXIDE HCL 25 MG CAPSULE PO SCH ×3 (06:14→17:19)
[2018-08-19] MEDS: GABAPENTIN 400 MG CAPSULE (FP) PO SCH ×3 (06:29→22:11)
[2018-08-19] MEDS: BUPRENORPHINE/NALOXONE 8 MG/2 MG FILM PACKET SL SCH ×2 (09:15→20:18)
[2018-08-19] MEDS: PRENATAL VITAMINS W/ FOLIC ACID TABLET (FP) PO SCH (10:23)
--- NOTE | 2018-08-19 15:02 | PN ---
[facility] CIWA - CIWA Score Nausea/Vomitin-No Nausea/No Vomiting Muscle Tremors: 3 Anxiety: 4-Mod. Anxious/Guarded Agitation: 2 Paroxysmal Sweats: No Perspiration Orientation: 0-Oriented Tacttile Disturbances: 2-Mild Itch/Numbness/Burn Auditory Disturbances: 2-Mild Harshness/Frighten Visual Disturbances: 0-None Headache: 0-None Present CIWA-Ar Total Score: 13 BHS Progress Note (SOAP) Subjective: Anxious, Tremors. Objective: PATIENT A & O X 3, OBSERVED AMBULATING ON UNIT UNASSISTED. IN NO ACUTE DISTRESS. 08/19/18 14:57 Vital Signs Temperature 98.1 F 08/19/18 13:17 Pulse Rate 74 08/19/18 13:17 Respiratory Rate 20 08/19/18 13:17 Blood Pressure 113/80 08/19/18 13:17 O2 Sat by Pulse Oximetry (%) Laboratory Tests 08/18/18 08/18/18 08/18/18 07:30 07:30 07:30 WBC 6.5 RBC 4.17 Hgb 13.9 Hct 41.2 MCV 98.9 H MCH 33.3 MCHC 33.7 RDW 15.4 D Plt Count 114 L MPV 10.1 D Sodium 141 Potassium 3.8 Chloride 107 Carbon Dioxide 28 Anion Gap 5 L BUN 7 Creatinine 0.7 Est GFR (CKD-EPI)AfAm 116.40 Est GFR (CKD-EPI)NonAf 100.43 Random Glucose 104 Calcium 8.9 Total Bilirubin 1.7 H AST 39 H ALT 21 Alkaline Phosphatase 97 Total Protein 7.3 Albumin 3.3 L RPR Titer Nonreactive LABS NOTED. PATIENT HAS HAD ELEVATED TOTAL BILIRUBIN LEVEL AND LOW PLATELET LEVEL ON PREVIOUS ADMISSIONS. 08/19/18 15:00 Assessment: 08/19/18 14:58 WITHDRAWAL SYMPTOMS. HYPERBILIRUBINEMIA. THRMOBOCYTOPENIA. 08/19/18 15:00 Plan: CONTINUE DETOX. INCREASE DAILY PO FLUID INTAKE.
[2018-08-19] MEDS: THIAMINE HCL 100 MG TABLET (FP) PO SCH (22:11)
[2018-08-19] MEDS: MELATONIN 5 MG TABLETS PO PRN (22:12)
[2018-08-19] MEDS: chlordiazePOXIDE HCL 10 MG CAPSULE PO SCH (22:12)
[2018-08-19] MEDS ORDERED: chlordiazePOXIDE HCL 10 MG CAPSULE PO PRN (23:00)
[2018-08-20] MEDS: chlordiazePOXIDE HCL 10 MG CAPSULE PO SCH ×3 (05:44→17:34)
[2018-08-20] MEDS: GABAPENTIN 400 MG CAPSULE (FP) PO SCH ×3 (05:44→21:58)
[2018-08-20] MEDS: BUPRENORPHINE/NALOXONE 8 MG/2 MG FILM PACKET SL SCH ×2 (08:34→20:24)
[2018-08-20] MEDS: PRENATAL VITAMINS W/ FOLIC ACID TABLET (FP) PO SCH (10:20)
--- NOTE | 2018-08-20 14:28 | PN ---
S Progress Note (SOAP) Subjective: alert,irritable,anxious,interrupted sleep Objective: 08/20/18 14:28 Vital Signs Temperature 98.1 F 08/20/18 10:34 Pulse Rate 76 08/20/18 10:34 Respiratory Rate 18 08/20/18 10:34 Blood Pressure 118/78 08/20/18 10:34 O2 Sat by Pulse Oximetry (%) Assessment: 08/20/18 14:28 withdrawal symptom Plan: continue detox,discharge in am
[2018-08-20] MEDS: THIAMINE HCL 100 MG TABLET (FP) PO SCH (21:58)
[2018-08-20] MEDS: MELATONIN 5 MG TABLETS PO PRN (22:02)
[2018-08-20] MEDS ORDERED: chlordiazePOXIDE HCL 10 MG CAPSULE PO SCH (23:00)
[2018-08-21] MEDS: GABAPENTIN 400 MG CAPSULE (FP) PO SCH (05:43)
[2018-08-21] MEDS: BUPRENORPHINE/NALOXONE 8 MG/2 MG FILM PACKET SL SCH (09:00)
[2018-08-21] MEDS: PRENATAL VITAMINS W/ FOLIC ACID TABLET (FP) PO SCH (09:00)
[2018-08-21 09:10] VITALS: BP 132/84; PULSE 81; TEMP 98.7
--- NOTE | 2018-08-21 09:47 | DS ---
[facility] Detox Discharge Summary Admission Date: 08/17/18 Discharge Date: 08/21/18 - History Present History: Alcohol Dependence, Opioid Dependence - Physical Exam Results Vital Signs: Vital Signs Temperature 98.7 F 08/21/18 09:10 Pulse Rate 81 08/21/18 09:10 Respiratory Rate 08/21/18 09:10 Blood Pressure 132/84 08/21/18 09:10 O2 Sat by Pulse Oximetry (%) - Treatment Hospital Course: Detox Protocol Followed, Detoxed Safely, Responded well, Discharged Condition Good, Rehab Referral Accepted - Medication Discharge Medications: Ambulatory Orders Buprenorphine HCl/Naloxone HCl [Buprenorp-Nalox 8-2 mg Sl Film] 1 each SL BID Gabapentin [Neurontin -] 400 mg PO Q8H 08/17/18 Mirtazapine 15 mg PO HS 08/17/18 - Diagnosis (1) Hyperbilirubinemia Current Visit: Yes Status: Acute (2) Alcohol dependence with uncomplicated withdrawal Current Visit: Yes Status: Chronic (3) Hepatitis C Current Visit: Yes Status: Chronic Qualifiers: Viral hepatitis chronicity: chronic Hepatic coma status: without hepatic coma Qualified Code(s): B18.2 - Chronic viral hepatitis C (4) Opioid dependence on agonist therapy Current Visit: Yes Status: Chronic (5) Positive PPD Current Visit: Yes Status: Chronic (6) Substance-induced sleep disorder Current Visit: No Status: Acute (7) Anxiety disorder Current Visit: No Status: Chronic (8) PPD positive, treated Current Visit: No Status: Resolved (9) Encounter for monitoring Suboxone maintenance therapy Current Visit: Yes Status: Chronic - AMA Did Patient Leave Against Medical Advice: No (pt declined rehab; going home)
== END 2018-08-21 09:41 | disposition home or self-care (01) | DRG 773 ==
LOC: YASAS 15:33 → Y6N 18:57
PROVIDERS: ADMIT Surgery; ATTEND Surgery
PROC: HZ2ZZZZ Detoxification Services for Substance Abuse Treatment (ICD-10-PCS; principal; 2018-08-17)
DX: F10.230 Alcohol dependence with withdrawal, uncomplicated (principal); F11.20 Opioid dependence, uncomplicated; F19.282 Other psychoactive substance dependence with psychoactive substance-induced sleep disorder; F41.9 Anxiety disorder, unspecified; B18.2 Chronic viral hepatitis C; E88.09 Other disorders of plasma-protein metabolism, not elsewhere classified; R76.11 Nonspecific reaction to tuberculin skin test without active tuberculosis; D69.6 Thrombocytopenia, unspecified
CPT/HCPCS: 36415; 80053; 82247; 85027; 86593

== ENCOUNTER 2018-12-29 09:38 | Inpatient (IN) | payer OTHER ==
[2018-12-29 10:27] VITALS: BMI 33.2
--- NOTE | 2018-12-29 11:24 | HP ---
CIWA Score Nausea/Vomitin Muscle Tremors: 3 Anxiety: 3 Agitation: 3 Paroxysmal Sweats: 1-Minimal Palms Moist Orientation: 0-Oriented Tacttile Disturbances: 1-Very Mild Itch/Numbness Auditory Disturbances: 0-None Visual Disturbances: 0-None Headache: 2-Mild CIWA-Ar Total Score: 15 - Admission Criteria OASAS Guidelines: Admission for Medically Managed Detox: Requires at least one of the followin. CIWA greater than 12 2. Seizures within the past 24 hours 3. Delirium tremens within the past 24 hours 4. Hallucinations within the past 24 hours 5. Acute intervention needed for co occurring medical disorder 6. Acute intervention needed for co occurring psychiatric disorder 7. Severe withdrawal that cannot be handled at a lower level of care (continued vomiting, continued diarrhea, abnormal vital signs) requiring intravenous medication and/or fluids 8. Admission ROS S - [facility] Chief Complaint: i am here to detox from alcohol Allergies/Adverse Reactions: Allergies Allergy/AdvReac Type Severity Reaction Status Date / Time No Known Allergies Allergy Verified 12/29/18 10:05 History of Present Illness: this 63 years old male with alcohol dependence,seeking detox,withdrawal symptom, last detox 11/22/18 to 11/27/18 [facility], multiple admisions in detox but keep relapsing living with friend syncope alcohol related denied seizure on suboxone maintenance for 6 months longest sobriety 2 years plan may be aa meeting after detox,out patient program hepatitis c treated verification with patient's pmd by nurse Alyson Trevizo patient is on suboxone film 8mg/2mg two and a half daily Exam Limitations: No Limitations - Ebola screening Have you traveled outside of the country in the last 21 days: No (N) Have you had contact with anyone from an Ebola affected area: No Do you have a fever: No - Review of Systems Constitutional: Loss of Appetite, Malaise, Night Sweats, Changes in sleep, Weakness EENT: reports: Tearing, Nose Congestion Respiratory: reports: No Symptoms reported Cardiac: reports: No Symptoms Reported GI: reports: Nausea, Vomiting, Abdominal cramping : reports: No Symptoms Reported Musculoskeletal: reports: Back Pain, Muscle Pain Integumentary: reports: Dryness Neuro: reports: Headache, Tremors Endocrine: reports: No Symptoms Reported Hematology: reports: No Symptoms Reported Psychiatric: reports: No Sypmtoms Reported, Judgement Intact, Mood/Affect Appropiate, Orientated x3, other Other Systems: Reviewed and Negative Patient History - Patient Medical History Hx Anemia: No Hx Asthma: No Hx Chronic Obstructive Pulmonary Disease (COPD): No Hx Cancer: No Hx Cardiac Disorders: No Hx Congestive Heart Failure: No Hx Hypertension: No Hx Hypercholesterolemia: No Hx Pacemaker: No HX Cerebrovascular Accident: No Hx Seizures: No Hx Dementia: No Hx Diabetes: No Hx Gastrointestinal Disorders: No Hx Liver Disease: No Hx Genitourinary Disorders: No Hx Sexually Transmitted Disorders: No Hx Renal Disease (ESRD): No Hx Thyroid Disease: No Hx Human Immunodeficiency Virus (HIV): No (last 2016) Hx Hepatitis C: Yes (treated) Hx Depression: No Hx Suicide Attempt: No Hx Bipolar Disorder: No Hx Schizophrenia: No Other Medical History: nosuicidal,no homicidal - Patient Surgical History Past Surgical History: No Hx Neurologic Surgery: No Hx Cataract Extraction: No Hx Cardiac Surgery: No Hx Lung Surgery: No Hx Breast Surgery: No Hx Breast Biopsy: No Hx Abdominal Surgery: No Hx Appendectomy: No Hx Cholecystectomy: No Hx Genitourinary Surgery: No Hx Section: No Hx Orthopedic Surgery: No Anesthesia Reaction: No - PPD History Previous Implant?: Yes Documented Results: Positive w/proof Implanted On Prior [facility] Admission?: No Date: 04/17/18 Results: cxr(-)04/17/2018 PPD to be Administered?: No - Smoking Cessation Smoking history: Never smoked Have you smoked in the past 12 months: No Hx Chewing Tobacco Use: No - Substance & Tx. History Hx Alcohol Use: Yes Substance Use Type: Alcohol Hx Substance Use Treatment: Yes (11/22/18 to 11/27/18) - Substances abused Alcohol Substance route: Oral Frequency: Daily Amount used: 4 to 6 packs of beers/ 2 pints of vodka. Age of first use: 19 Date of last use: 12/29/18 Admission Physical Exam [facility] - Vital Signs Vital Signs: Vital Signs - 24 hr 12/29/18 10:02 Temperature 97.0 F L Pulse Rate 57 L Respiratory 16 Rate Blood Pressure 113/73 - Physical General Appearance: Yes: Moderate Distress, Irritable, Sweating, Anxious HEENTM: Yes: Within Normal Limits, TETE Respiratory: Yes: Lungs Clear, Normal Breath Sounds, No Respiratory Distress Neck: Yes: Within Normal Limits, Supple, Trachea in good position Breast: Yes: Within Normal Limits Cardiology: Yes: Within Normal Limits, Regular Rhythm, Regular Rate, S1, S2 Abdominal: Yes: Within Normal Limits, Normal Bowel Sounds, Non Tender, Flat, Soft Genitourinary: Yes: Within Normal Limits Back: Yes: Muscle Spasm Musculoskeletal: Yes: full range of Motion, Back pain, Muscle Pain Extremities: Yes: Within Normal Limits, Normal Range of Motion, Tremors Neurological: Yes: motor vehicle clerk II-XII NML intact, Fully Oriented, Alert, Motor Strength 5/5 Integumentary: Yes: Dry Lymphatic: Yes: Within Normal Limits - Diagnostic (1) Alcohol dependence with uncomplicated withdrawal Current Visit: No Status: Chronic (2) Encounter for monitoring Suboxone maintenance therapy Current Visit: No Status: Chronic (3) Hepatitis C Current Visit: No Status: Chronic Qualifiers: Viral hepatitis chronicity: chronic Hepatic coma status: without hepatic coma Qualified Code(s): B18.2 - Chronic viral hepatitis C (4) PPD positive, treated Current Visit: No Status: Resolved (5) Syncope Current Visit: Yes Status: Acute (6) Varicose vein of leg Current Visit: Yes Status: Acute (7) Neuropathy Current Visit: Yes Status: Acute Cleared for Admission S - Detox or Rehab [facility] Level of Care: Medically Managed Detox Regimen/Protocol: Librium Breathalyzer - Breathalyzer Breathalyzer: 0.084 Urine Drug Screen - Test Device Lot number: [id number] Expiration date: 09/04/20 - Control Is test valid?: Yes - Results Drug screen NEGATIVE: No Urine drug screen results: BZO-Benzodiazepines, BUP-Suboxone Inpatient Rehab Admission - Rehab Decision to Admit Inpatient rehab admission?: No
[2018-12-29] MEDS ORDERED: MENTHOL/PHENOL 1 EACH UD MM PRN (11:33)
[2018-12-29] MEDS ORDERED: METHOCARBAMOL 500 MG TABLET PO PRN (11:33)
[2018-12-29] MEDS ORDERED: hydrOXYzine PAMOATE 25 MG CAPSULE (FP) PO PRN (11:33)
[2018-12-29] MEDS ORDERED: MAGNESIUM HYDROX 2400MG/30ML ORAL SUSPENSION 30 ML CUP PO PRN (11:33)
[2018-12-29] MEDS ORDERED: ACETAMINOPHEN 325 MG TABLET (FP) PO PRN ×2 (11:33)
[2018-12-29] MEDS ORDERED: IBUPROFEN 400 MG TABLET (FP) PO PRN (11:33)
[2018-12-29] MEDS ORDERED: MAG HYDROX/AL HYDROX/SIMETH 30 ML UNIT-DOSE CUP PO PRN (11:33)
[2018-12-29] MEDS ORDERED: MAGNESIUM CITRATE 300 ML BOTTLE PO PRN (11:33)
[2018-12-29] MEDS ORDERED: BISMUTH SUBSALICYLATE 262 MG/15 ML BTL PO PRN (11:33)
[2018-12-29] MEDS: BUPRENORPHINE/NALOXONE 4 MG/1 MG FILM PACKET SL SCH (13:02)
[2018-12-29] MEDS: chlordiazePOXIDE HCL 25 MG CAPSULE PO PRN (13:03)
[2018-12-29] MEDS: GABAPENTIN 400 MG CAPSULE (FP) PO SCH ×2 (13:03→22:21)
[2018-12-29 15:58] LABS: ALBUMIN 3.8 g/dl (3.4-5.0); BILIRUBIN,TOTAL 2.4 mg/dL (0.2-1); BLOOD UREA NITROGEN 13.3 mg/dL (7-18); CALCIUM 8.4 mg/dL (8.5-10.1); CREATININE 0.8 mg/dL (0.55-1.3); POTASSIUM 3.9 mmol/L (3.5-5.1); TOT PROT 8.2 g/dl (6.4-8.2)
[2018-12-29 16:09] LABS: HEMOGLOBIN 14.2 GM/dL (11.7-16.9); MCH 33.8 pg (25.7-33.7); MCHC 34.5 g/dl (32.0-35.9); MEAN CELL VOLUME 98.1 fl (80-96); RBC 4.19 M/mm3 (4.00-5.60); RDW 15.1 % (11.9-15.9); WHITE BLOOD COUNT 5.6 K/mm3 (4.0-10.0)
[2018-12-29] MEDS: chlordiazePOXIDE HCL 25 MG CAPSULE PO SCH ×2 (17:26→22:21)
[2018-12-29 18:04] LABS: PLATELET COUNT 97 K/MM3 (134-434)
[2018-12-29] MEDS: THIAMINE HCL 100 MG TABLET (FP) PO SCH (22:21)
[2018-12-29] MEDS: BUPRENORPHINE/NALOXONE 8 MG/2 MG FILM PACKET SL SCH (22:21)
[2018-12-30] MEDS: BUPRENORPHINE/NALOXONE 8 MG/2 MG FILM PACKET SL SCH ×2 (05:38→22:08)
[2018-12-30] MEDS: chlordiazePOXIDE HCL 25 MG CAPSULE PO SCH ×4 (05:38→22:08)
[2018-12-30] MEDS: GABAPENTIN 400 MG CAPSULE (FP) PO SCH ×3 (07:23→22:08)
[2018-12-30] MEDS: PRENATAL VITAMINS W/ FOLIC ACID TABLET (FP) PO SCH (10:23)
--- NOTE | 2018-12-30 13:07 | PN ---
[facility] CIWA - CIWA Score Nausea/Vomitin-Mild Nausea/No Vomiting Muscle Tremors: 2 Anxiety: 3 Agitation: 1-Slight > Activity Paroxysmal Sweats: 2 Orientation: 1-Uncertain about Date Tacttile Disturbances: 0-None Auditory Disturbances: 0-None Visual Disturbances: 0-None Headache: 2-Mild CIWA-Ar Total Score: 12 S Progress Note (SOAP) Subjective: doing well with librium detox regimen sitting on the edge of the bed eating breakfast denies dizziness no trouble chewing swallowing tolerate food and fluid well Objective: 12/30/18 13:06 Vital Signs Temperature 97.2 F L 12/30/18 09:50 Pulse Rate 57 L 12/30/18 09:50 Respiratory Rate 18 12/30/18 09:50 Blood Pressure 107/73 12/30/18 09:50 O2 Sat by Pulse Oximetry (%) Laboratory Last Values WBC 5.6 K/mm3 (4.0-10.0) 12/29/18 11:55 RBC 4.19 M/mm3 (4.00-5.60) 12/29/18 11:55 Hgb 14.2 GM/dL (11.7-16.9) 12/29/18 11:55 Hct 41.0 % (35.4-49) 12/29/18 11:55 MCV 98.1 fl (80-96) H 12/29/18 11:55 MCH 33.8 pg (25.7-33.7) H 12/29/18 11:55 MCHC 34.5 g/dl (32.0-35.9) 12/29/18 11:55 RDW 15.1 % (11.9-15.9) 12/29/18 11:55 Plt Count 97 K/MM3 (134-434) L 12/29/18 11:55 MPV 10.0 fl (7.5-11.1) 12/29/18 11:55 Sodium 140 mmol/L (136-145) 12/29/18 11:55 Potassium 3.9 mmol/L (3.5-5.1) 12/29/18 11:55 Chloride 105 mmol/L (98-107) 12/29/18 11:55 Carbon Dioxide 25 mmol/L (21-32) 12/29/18 11:55 Anion Gap 10 MMOL/L (8-16) 12/29/18 11:55 BUN 13.3 mg/dL (7-18) 12/29/18 11:55 Creatinine 0.8 mg/dL (0.55-1.3) 12/29/18 11:55 Est GFR (CKD-EPI)AfAm 110.19 12/29/18 11:55 Est GFR (CKD-EPI)NonAf 95.07 12/29/18 11:55 Random Glucose 104 mg/dL (74-106) 12/29/18 11:55 Calcium 8.4 mg/dL (8.5-10.1) L 12/29/18 11:55 Total Bilirubin 2.4 mg/dL (0.2-1) H 12/29/18 11:55 AST 43 U/L (15-37) H 12/29/18 11:55 ALT 23 U/L (13-61) 12/29/18 11:55 Alkaline Phosphatase 83 U/L (45-117) 12/29/18 11:55 Total Protein 8.2 g/dl (6.4-8.2) 12/29/18 11:55 Albumin 3.8 g/dl (3.4-5.0) 12/29/18 11:55 lab noted Assessment: 12/30/18 13:06 alcohol withdrawal sx Plan: continue librium detox regimen
[2018-12-30] MEDS: BUPRENORPHINE/NALOXONE 4 MG/1 MG FILM PACKET SL SCH (13:16)
[2018-12-30] MEDS: chlordiazePOXIDE HCL 25 MG CAPSULE PO PRN (13:17)
[2018-12-30] MEDS: THIAMINE HCL 100 MG TABLET (FP) PO SCH (22:08)
[2018-12-31] MEDS: chlordiazePOXIDE HCL 25 MG CAPSULE PO SCH ×4 (05:27→22:12)
[2018-12-31] MEDS: GABAPENTIN 400 MG CAPSULE (FP) PO SCH ×3 (05:27→22:13)
[2018-12-31] MEDS: BUPRENORPHINE/NALOXONE 8 MG/2 MG FILM PACKET SL SCH ×2 (05:27→22:13)
[2018-12-31] MEDS: PRENATAL VITAMINS W/ FOLIC ACID TABLET (FP) PO SCH (10:49)
--- NOTE | 2018-12-31 11:36 | PN ---
[facility] CIWA - CIWA Score Nausea/Vomitin-Mild Nausea/No Vomiting Muscle Tremors: 2 Anxiety: 3 Agitation: 1-Slight > Activity Paroxysmal Sweats: 2 Orientation: 0-Oriented Tacttile Disturbances: 0-None Auditory Disturbances: 0-None Visual Disturbances: 0-None Headache: 0-None Present CIWA-Ar Total Score: 9 S Progress Note (SOAP) Subjective: ate breakfast resting on bed comfortably Objective: 12/31/18 11:35 Vital Signs Temperature 97.9 F 12/31/18 09:27 Pulse Rate 58 L 12/31/18 09:27 Respiratory Rate 20 12/31/18 09:27 Blood Pressure 104/55 L 12/31/18 09:27 O2 Sat by Pulse Oximetry (%) Laboratory Last Values WBC 5.6 K/mm3 (4.0-10.0) 12/29/18 11:55 RBC 4.19 M/mm3 (4.00-5.60) 12/29/18 11:55 Hgb 14.2 GM/dL (11.7-16.9) 12/29/18 11:55 Hct 41.0 % (35.4-49) 12/29/18 11:55 MCV 98.1 fl (80-96) H 12/29/18 11:55 MCH 33.8 pg (25.7-33.7) H 12/29/18 11:55 MCHC 34.5 g/dl (32.0-35.9) 12/29/18 11:55 RDW 15.1 % (11.9-15.9) 12/29/18 11:55 Plt Count 97 K/MM3 (134-434) L 12/29/18 11:55 MPV 10.0 fl (7.5-11.1) 12/29/18 11:55 Sodium 140 mmol/L (136-145) 12/29/18 11:55 Potassium 3.9 mmol/L (3.5-5.1) 12/29/18 11:55 Chloride 105 mmol/L (98-107) 12/29/18 11:55 Carbon Dioxide 25 mmol/L (21-32) 12/29/18 11:55 Anion Gap 10 MMOL/L (8-16) 12/29/18 11:55 BUN 13.3 mg/dL (7-18) 12/29/18 11:55 Creatinine 0.8 mg/dL (0.55-1.3) 12/29/18 11:55 Est GFR (CKD-EPI)AfAm 110.19 12/29/18 11:55 Est GFR (CKD-EPI)NonAf 95.07 12/29/18 11:55 POC Glucometer 116 UNITS (80-120) 12/31/18 05:25 Random Glucose 104 mg/dL (74-106) 12/29/18 11:55 Calcium 8.4 mg/dL (8.5-10.1) L 12/29/18 11:55 Total Bilirubin 2.4 mg/dL (0.2-1) H 12/29/18 11:55 AST 43 U/L (15-37) H 12/29/18 11:55 ALT 23 U/L (13-61) 12/29/18 11:55 Alkaline Phosphatase 83 U/L (45-117) 12/29/18 11:55 Total Protein 8.2 g/dl (6.4-8.2) 12/29/18 11:55 Albumin 3.8 g/dl (3.4-5.0) 12/29/18 11:55 RPR Titer Nonreactive (NONREACTIVE) 12/29/18 11:55 lab noted Assessment: 12/31/18 11:35 alcohol withdrawal sx Plan: continue librium detox regimen
[2018-12-31] MEDS: BUPRENORPHINE/NALOXONE 4 MG/1 MG FILM PACKET SL SCH (12:50)
[2018-12-31] MEDS: chlordiazePOXIDE HCL 25 MG CAPSULE PO PRN (12:50)
[2018-12-31] MEDS: THIAMINE HCL 100 MG TABLET (FP) PO SCH (22:12)
[2018-12-31] MEDS: MELATONIN 5 MG TABLETS PO PRN (22:13)
[2019-01-01] MEDS ORDERED: chlordiazePOXIDE HCL 10 MG CAPSULE PO PRN
[2019-01-01] MEDS: BUPRENORPHINE/NALOXONE 8 MG/2 MG FILM PACKET SL SCH ×2 (05:57→22:15)
[2019-01-01] MEDS: chlordiazePOXIDE HCL 10 MG CAPSULE PO SCH ×4 (05:57→22:15)
[2019-01-01] MEDS: GABAPENTIN 400 MG CAPSULE (FP) PO SCH ×3 (06:12→22:15)
[2019-01-01] MEDS: PRENATAL VITAMINS W/ FOLIC ACID TABLET (FP) PO SCH (10:32)
[2019-01-01] MEDS: BUPRENORPHINE/NALOXONE 4 MG/1 MG FILM PACKET SL SCH (13:31)
--- NOTE | 2019-01-01 15:32 | PN ---
S CIWA - CIWA Score Nausea/Vomitin-No Nausea/No Vomiting Muscle Tremors: 3 Anxiety: 4-Mod. Anxious/Guarded Agitation: 2 Paroxysmal Sweats: No Perspiration Orientation: 0-Oriented Tacttile Disturbances: 0-None Auditory Disturbances: 0-None Visual Disturbances: 0-None Headache: 0-None Present CIWA-Ar Total Score: 9 BHS Progress Note (SOAP) Subjective: Anxious, Tremors, Body Aches. Objective: PATIENT A & O X 3, OBSERVED AMBULATING ON DETOX UNIT UNASSISTED. IN NO ACUTE DISTRESS. 01/01/19 15:26 Vital Signs Temperature 98.7 F 01/01/19 14:04 Pulse Rate 69 01/01/19 14:04 Respiratory Rate 18 01/01/19 14:04 Blood Pressure 116/72 01/01/19 14:04 O2 Sat by Pulse Oximetry (%) Laboratory Tests 12/29/18 12/29/18 12/29/18 11:55 11:55 11:55 WBC 5.6 RBC 4.19 Hgb 14.2 Hct 41.0 MCV 98.1 H MCH 33.8 H MCHC 34.5 RDW 15.1 Plt Count 97 L MPV 10.0 Sodium 140 Potassium 3.9 Chloride 105 Carbon Dioxide 25 Anion Gap 10 BUN 13.3 Creatinine 0.8 Est GFR (CKD-EPI)AfAm 110.19 Est GFR (CKD-EPI)NonAf 95.07 POC Glucometer Random Glucose 104 Calcium 8.4 L Total Bilirubin 2.4 H AST 43 H ALT 23 Alkaline Phosphatase 83 Total Protein 8.2 Albumin 3.8 RPR Titer Nonreactive 12/31/18 05:25 WBC RBC Hgb Hct MCV MCH MCHC RDW Plt Count MPV Sodium Potassium Chloride Carbon Dioxide Anion Gap BUN Creatinine Est GFR (CKD-EPI)AfAm Est GFR (CKD-EPI)NonAf POC Glucometer 116 Random Glucose Calcium Total Bilirubin AST ALT Alkaline Phosphatase Total Protein Albumin RPR Titer LABS NOTED. PATIENT HAS HAD ELEVATED AST LEVELS ON PREVIOUS ADMISSIONS. 01/01/19 15:32 Assessment: 01/01/19 15:34 WITHDRAWAL SYMPTOMS. ELEVATED ALT LEVEL. HYPERBILIRUBINEMIA. Plan: PATIENT CONTINUE DETOX. INCREASE DAILY PO WATER INTAKE. RE-CHECK TOTAL BILIRUBIN LEVEL TOMORROW AM DUE TO ELEVATED TOTAL BILIRUBIN LEVEL NOTED ON DETOX ADMISSION LABORATORY ASSESSMENT.
[2019-01-01] MEDS: THIAMINE HCL 100 MG TABLET (FP) PO SCH (22:16)
[2019-01-01] MEDS: MELATONIN 5 MG TABLETS PO PRN (22:16)
[2019-01-02] MEDS: chlordiazePOXIDE HCL 10 MG CAPSULE PO SCH ×2 (06:07→17:22)
[2019-01-02] MEDS: BUPRENORPHINE/NALOXONE 8 MG/2 MG FILM PACKET SL SCH ×2 (06:07→22:19)
[2019-01-02] MEDS: GABAPENTIN 400 MG CAPSULE (FP) PO SCH ×3 (06:07→22:19)
[2019-01-02] MEDS: PRENATAL VITAMINS W/ FOLIC ACID TABLET (FP) PO SCH (10:27)
[2019-01-02] MEDS: BUPRENORPHINE/NALOXONE 4 MG/1 MG FILM PACKET SL SCH (13:09)
--- NOTE | 2019-01-02 16:45 | PN ---
S CIWA - CIWA Score Nausea/Vomitin-No Nausea/No Vomiting Muscle Tremors: None Anxiety: 3 Agitation: 3 Paroxysmal Sweats: No Perspiration Orientation: 0-Oriented Tacttile Disturbances: 0-None Auditory Disturbances: 0-None Visual Disturbances: 0-None Headache: 0-None Present CIWA-Ar Total Score: 6 BHS Progress Note (SOAP) Subjective: Body Aches, Anxious. Patient reports That Current withdrawal Detox Symptoms have subsided considerably since time of admission to Detox. Objective: PATIENT A & O X 3, OBSERVED AMBULATING ON DETOX UNIT UNASSISTED. IN NO ACUTE DISTRESS. 01/02/19 16:49 Vital Signs Temperature 97.5 F L 01/02/19 13:24 Pulse Rate 69 01/02/19 13:24 Respiratory Rate 20 01/02/19 13:24 Blood Pressure 114/74 01/02/19 13:24 O2 Sat by Pulse Oximetry (%) Laboratory Tests 12/29/18 12/29/18 12/29/18 11:55 11:55 11:55 WBC 5.6 RBC 4.19 Hgb 14.2 Hct 41.0 MCV 98.1 H MCH 33.8 H MCHC 34.5 RDW 15.1 Plt Count 97 L MPV 10.0 Sodium 140 Potassium 3.9 Chloride 105 Carbon Dioxide 25 Anion Gap 10 BUN 13.3 Creatinine 0.8 Est GFR (CKD-EPI)AfAm 110.19 Est GFR (CKD-EPI)NonAf 95.07 POC Glucometer Random Glucose 104 Calcium 8.4 L Total Bilirubin 2.4 H AST 43 H ALT 23 Alkaline Phosphatase 83 Total Protein 8.2 Albumin 3.8 RPR Titer Nonreactive 12/31/18 01/02/19 05:25 07:40 WBC RBC Hgb Hct MCV MCH MCHC RDW Plt Count MPV Sodium Potassium Chloride Carbon Dioxide Anion Gap BUN Creatinine Est GFR (CKD-EPI)AfAm Est GFR (CKD-EPI)NonAf POC Glucometer 116 Random Glucose Calcium Total Bilirubin 1.5 H AST ALT Alkaline Phosphatase Total Protein Albumin RPR Titer LABS NOTED. PATIENT HAS HAD ELEVATED AST AND TOTAL BILIRUBIN LEVELS ON PREVIOUS ADMISSIONS. RESULT OF REPEAT TOTAL BILIRUBIN LEVEL DRASWN EARLIER TODAY NOTED (1.5 - REDUCTION IN COMPARISON TO ADMISSION TOTAL BILIRUBIN LEVEL). 01/02/19 16:50 Assessment: 01/02/19 16:51 WITHDRAWAL SYMPTOMS. HYPERBILIRUBINEMIA. ELEVATED AST LEVEL. 01/02/19 16:52 Plan: CONTINUE DETOX. PATIENT ADVISED TO FOLLOW-UP WITH [facility] AFTER DISCHARGE FROM DETOX FOR ELEVATED AST AND TOTAL BILIRUBIN LEVELS NOTED ON DETOX ADMISSION AND REPEAT LABORATORY ASSESSMENTS. PATIENT VERBALIZED UNDERSTANDING OF RECOMMENDATION. COPIES OF RESULTS OF ALL LABS DRAWN WHILE ADMITTED FOR DETOX GIVEN TO PATIENT AT TIME OF DISCHARGE FROM DETOX UNIT.
[2019-01-02] MEDS: THIAMINE HCL 100 MG TABLET (FP) PO SCH (22:19)
[2019-01-02] MEDS: MELATONIN 5 MG TABLETS PO PRN (22:19)
[2019-01-03] MEDS ORDERED: chlordiazePOXIDE HCL 10 MG CAPSULE PO ONE (05:00)
[2019-01-03] MEDS: BUPRENORPHINE/NALOXONE 8 MG/2 MG FILM PACKET SL SCH (05:54)
[2019-01-03] MEDS: GABAPENTIN 400 MG CAPSULE (FP) PO SCH (05:54)
[2019-01-03 09:46] VITALS: BP 122/71; PULSE 68; TEMP 97.5
--- NOTE | 2019-01-03 11:43 | DS ---
[facility] Detox Discharge Summary Admission Date: 12/29/18 Discharge Date: 01/03/19 - History Present History: Alcohol Dependence Additional Comments: did well with librium detox regimen no complication through out the detox stay patient prefers return to suboxone program for medical and mental issues patient is alert oriented x 3 steady gait cardiac S1S2 regular rate rhythm respiratory clear lung bilaterally on auscultation - Physical Exam Results Vital Signs: Vital Signs Temperature 97.5 F L 01/03/19 09:45 Pulse Rate 68 01/03/19 09:45 Respiratory Rate 18 01/03/19 09:45 Blood Pressure 122/71 01/03/19 09:45 O2 Sat by Pulse Oximetry (%) Pertinent Admission Physical Exam Findings: alcohol withdrawal sx Laboratory Last Values WBC 5.6 K/mm3 (4.0-10.0) 12/29/18 11:55 RBC 4.19 M/mm3 (4.00-5.60) 12/29/18 11:55 Hgb 14.2 GM/dL (11.7-16.9) 12/29/18 11:55 Hct 41.0 % (35.4-49) 12/29/18 11:55 MCV 98.1 fl (80-96) H 12/29/18 11:55 MCH 33.8 pg (25.7-33.7) H 12/29/18 11:55 MCHC 34.5 g/dl (32.0-35.9) 12/29/18 11:55 RDW 15.1 % (11.9-15.9) 12/29/18 11:55 Plt Count 97 K/MM3 (134-434) L 12/29/18 11:55 MPV 10.0 fl (7.5-11.1) 12/29/18 11:55 Sodium 140 mmol/L (136-145) 12/29/18 11:55 Potassium 3.9 mmol/L (3.5-5.1) 12/29/18 11:55 Chloride 105 mmol/L (98-107) 12/29/18 11:55 Carbon Dioxide 25 mmol/L (21-32) 12/29/18 11:55 Anion Gap 10 MMOL/L (8-16) 12/29/18 11:55 BUN 13.3 mg/dL (7-18) 12/29/18 11:55 Creatinine 0.8 mg/dL (0.55-1.3) 12/29/18 11:55 Est GFR (CKD-EPI)AfAm 110.19 12/29/18 11:55 Est GFR (CKD-EPI)NonAf 95.07 12/29/18 11:55 POC Glucometer 116 UNITS (80-120) 12/31/18 05:25 Random Glucose 104 mg/dL (74-106) 12/29/18 11:55 Calcium 8.4 mg/dL (8.5-10.1) L 12/29/18 11:55 Total Bilirubin 1.5 mg/dL (0.2-1) H 01/02/19 07:40 AST 43 U/L (15-37) H 12/29/18 11:55 ALT 23 U/L (13-61) 12/29/18 11:55 Alkaline Phosphatase 83 U/L (45-117) 12/29/18 11:55 Total Protein 8.2 g/dl (6.4-8.2) 12/29/18 11:55 Albumin 3.8 g/dl (3.4-5.0) 12/29/18 11:55 RPR Titer Nonreactive (NONREACTIVE) 12/29/18 11:55 lab noted - Treatment Hospital Course: Detox Protocol Followed, Detoxed Safely, Responded well, Discharged Condition Good, Rehab Referral Accepted Patient has Accepted a Rehab Referral to: suboxone maintenaince program - Medication Discharge Medications: Ambulatory Orders Buprenorphine HCl/Naloxone HCl [Buprenorp-Nalox 8-2 mg Sl Film] 2.5 each SL BID 08/17/18 Melatonin 5 mg PO HS PRN #30 tab 11/27/18 Buprenorp-Nalox 8-2 mg Sl Film 2.5 mg SL DAILY 12/29/18 Gabapentin 400 mg PO TID 12/29/18 - Diagnosis (1) Alcohol dependence with uncomplicated withdrawal Status: Acute (2) Encounter for monitoring Suboxone maintenance therapy Status: Chronic (3) Hepatitis C Status: Chronic Qualifiers: Viral hepatitis chronicity: chronic Hepatic coma status: without hepatic coma Qualified Code(s): B18.2 - Chronic viral hepatitis C (4) PPD positive, treated Status: Resolved - AMA Did Patient Leave Against Medical Advice: No CIWA Score - CIWA Score Nausea/Vomitin-No Nausea/No Vomiting Muscle Tremors: None Anxiety: 1-Mildly Anxious Agitation: 2 Paroxysmal Sweats: No Perspiration Orientation: 0-Oriented Tacttile Disturbances: 0-None Auditory Disturbances: 0-None Visual Disturbances: 0-None Headache: 0-None Present CIWA-Ar Total Score: 3
== END 2019-01-03 09:50 | disposition home or self-care (01) | DRG 773 ==
LOC: YASAS 09:38 → Y3N 11:42
PROVIDERS: ADMIT Surgery; ATTEND Surgery
PROC: HZ2ZZZZ Detoxification Services for Substance Abuse Treatment (ICD-10-PCS; principal; 2018-12-29)
DX: F10.230 Alcohol dependence with withdrawal, uncomplicated (principal); F11.20 Opioid dependence, uncomplicated; B18.2 Chronic viral hepatitis C; R76.11 Nonspecific reaction to tuberculin skin test without active tuberculosis; R74.0 Nonspecific elevation of levels of transaminase and lactic acid dehydrogenase [LDH]; E80.6 Other disorders of bilirubin metabolism; I83.90 Asymptomatic varicose veins of unspecified lower extremity; G62.9 Polyneuropathy, unspecified
CPT/HCPCS: 36415; 80053; 82247; 82962; 85027; 86593

== ENCOUNTER 2019-01-04 13:34 | Inpatient (IN) | payer OTHER ==
[2019-01-04 15:36] VITALS: BMI 34.5
--- NOTE | 2019-01-04 17:43 | HP ---
[facility] Rehab Assess/Revision - Admission History Admitted to Rehab [facility]: [facility] - Vital signs Vital Signs: Vital Signs Period Temp Pulse Resp BP Sys/Arenas Pulse Ox Last 24 Hr 97.6 F 68 18 109/69 Pt left [facility] yesterday after completing alcohol detox with librium. Here for admission to rehab. Pt on Suboxone. - Findings Detox History & Physical reviewed: Yes Concur with findings: Yes Comments/Additional Findings: did well with librium detox regimen. no complication through out the detox stay. left yesterday. Utox- pos for BZO and Bup only, SEFERINO-0 Inpatient Rehab Admission - Rehab Decision to Admit Inpatient rehab admission?: Yes - Initial Determination Are CD services needed?: Yes Free of communicable disease: Yes Not in need of hospitalization: Yes - Rehab Admission Criteria Previous failed treatment: Yes Poor recovery environment: Yes Comorbidities: Yes Lacks judgement: Yes Patient is meeting Inpatient Rehab admission criteria:: Yes (completed alcohol detox, here for rehab )
[2019-01-04] MEDS ORDERED: MAGNESIUM HYDROX 2400MG/30ML ORAL SUSPENSION 30 ML CUP PO PRN (17:49)
[2019-01-04] MEDS ORDERED: IBUPROFEN 400 MG TABLET (FP) PO PRN (17:49)
[2019-01-04] MEDS ORDERED: LOPERAMIDE HCL 2 MG CAPSULE PO PRN (17:49)
[2019-01-04] MEDS ORDERED: ACETAMINOPHEN 325 MG TABLET (FP) PO PRN (17:49)
[2019-01-04] MEDS ORDERED: MENTHOL/PHENOL 1 EACH UD MM PRN (17:49)
[2019-01-04] MEDS ORDERED: guaiFENesin 200 MG/10 ML 10 ML UNIT-DOSE CUPS PO PRN (17:49)
[2019-01-04] MEDS ORDERED: hydrOXYzine PAMOATE 25 MG CAPSULE (FP) PO PRN (17:49)
[2019-01-04] MEDS ORDERED: P-EPHED 60MG/TRIPROLIDI 2.5MG TABLET PO PRN (17:49)
[2019-01-04] MEDS ORDERED: NICOTINE POLACRILEX 2 MG GUM BC PRN (17:49)
[2019-01-04] MEDS ORDERED: MAGNESIUM CITRATE 300 ML BOTTLE PO PRN (17:49)
[2019-01-04] MEDS ORDERED: MAG HYDROX/AL HYDROX/SIMETH 30 ML UNIT-DOSE CUP PO PRN (17:49)
[2019-01-04] MEDS: THIAMINE HCL 100 MG TABLET (FP) PO SCH (21:13)
[2019-01-04] MEDS: GABAPENTIN 400 MG CAPSULE (FP) PO SCH (21:13)
[2019-01-04] MEDS: BUPRENORPHINE/NALOXONE 8 MG/2 MG FILM PACKET SL SCH (21:13)
[2019-01-05] MEDS: GABAPENTIN 400 MG CAPSULE (FP) PO SCH ×3 (07:08→21:16)
[2019-01-05] MEDS: PRENATAL VITAMINS W/ FOLIC ACID TABLET (FP) PO SCH (10:25)
[2019-01-05] MEDS: BUPRENORPHINE/NALOXONE 8 MG/2 MG FILM PACKET SL SCH ×2 (10:25→21:17)
[2019-01-05] MEDS: BUPRENORPHINE/NALOXONE 4 MG/1 MG FILM PACKET SL SCH (14:24)
[2019-01-05] MEDS: THIAMINE HCL 100 MG TABLET (FP) PO SCH (21:16)
[2019-01-06] MEDS: GABAPENTIN 400 MG CAPSULE (FP) PO SCH ×3 (06:30→21:08)
[2019-01-06] MEDS: PRENATAL VITAMINS W/ FOLIC ACID TABLET (FP) PO SCH (10:04)
[2019-01-06] MEDS: BUPRENORPHINE/NALOXONE 8 MG/2 MG FILM PACKET SL SCH ×2 (10:04→21:10)
[2019-01-06] MEDS: BUPRENORPHINE/NALOXONE 4 MG/1 MG FILM PACKET SL SCH (14:14)
[2019-01-06] MEDS: MELATONIN 5 MG TABLETS PO PRN (21:08)
[2019-01-06] MEDS: THIAMINE HCL 100 MG TABLET (FP) PO SCH (21:08)
[2019-01-07] MEDS: BUPRENORPHINE/NALOXONE 8 MG/2 MG FILM PACKET SL SCH ×2 (09:55→21:18)
[2019-01-07] MEDS: GABAPENTIN 400 MG CAPSULE (FP) PO SCH ×3 (09:55→21:15)
[2019-01-07] MEDS: PRENATAL VITAMINS W/ FOLIC ACID TABLET (FP) PO SCH (09:55)
--- NOTE | 2019-01-07 11:47 | PN ---
[facility] Progress Note Note: pt admitted to rehab after completing detox [facility] c/o open skin on sole of right feet that's been there for about a week or more. Denies itchy feet. Pt reports discomfort and wants to be seen today. Alert o x 3. oob with steady gait. Saw pt befor lunch time today laying in bed. reports my doctors say I have vein disease(pointing to right solomon with skin discolorations). Hx of hep c with ?treatment. Pt reports he has a primary doctor but does not remember name or location of his doctor. has it written in his card in wallet per pt's information at this encounter. Vital Signs - 24 hr 01/07/19 01/07/19 01/07/19 00:30 03:30 07:09 Temperature 98.1 F Pulse Rate 60 Respiratory 18 18 18 Rate Blood Pressure 106/65 alert o x 3. nad Extremities/Skin:Right sole very dry and scaly with cracked slit on distal sole of foot. No redness, swelling or drainage. right Solomon is with intact Brown discoloration of skin. Left solomon with normal color. No redness or swelling. A/P Dry skin Fissure of Right sole D/W pt will order Warm water and betadine solution soaks in a basin daily as directed. Apply bacitracin ointment to affected area bid eucerin cream daily moisturizing cream to skin Reminded pt to follow up with primary care/Vascular doctor for medical management.
[2019-01-07] MEDS: BACITRACIN 15 GM TUBE TOPICAL OINTMENT TP SCH ×2 (12:26→21:15)
[2019-01-07] MEDS: MINERAL OIL/PETROLAT/WATER TOPICAL CREAM 113 GM JAR TP SCH (13:38)
[2019-01-07] MEDS: BUPRENORPHINE/NALOXONE 4 MG/1 MG FILM PACKET SL SCH (14:16)
[2019-01-07] MEDS: THIAMINE HCL 100 MG TABLET (FP) PO SCH (21:14)
[2019-01-07] MEDS: MELATONIN 5 MG TABLETS PO PRN (21:14)
[2019-01-08] MEDS: PRENATAL VITAMINS W/ FOLIC ACID TABLET (FP) PO SCH (10:11)
[2019-01-08] MEDS: BUPRENORPHINE/NALOXONE 8 MG/2 MG FILM PACKET SL SCH ×2 (10:11→21:16)
[2019-01-08] MEDS: MINERAL OIL/PETROLAT/WATER TOPICAL CREAM 113 GM JAR TP SCH (10:12)
[2019-01-08] MEDS: GABAPENTIN 400 MG CAPSULE (FP) PO SCH ×3 (10:12→21:16)
[2019-01-08] MEDS: BACITRACIN 15 GM TUBE TOPICAL OINTMENT TP SCH ×2 (10:13→21:16)
[2019-01-08] MEDS: BUPRENORPHINE/NALOXONE 4 MG/1 MG FILM PACKET SL SCH (15:08)
[2019-01-08] MEDS: THIAMINE HCL 100 MG TABLET (FP) PO SCH (21:16)
[2019-01-09] MEDS: PRENATAL VITAMINS W/ FOLIC ACID TABLET (FP) PO SCH (09:49)
[2019-01-09] MEDS: BUPRENORPHINE/NALOXONE 8 MG/2 MG FILM PACKET SL SCH ×2 (09:50→21:15)
[2019-01-09] MEDS: BACITRACIN 15 GM TUBE TOPICAL OINTMENT TP SCH ×2 (09:50→21:17)
[2019-01-09] MEDS: GABAPENTIN 400 MG CAPSULE (FP) PO SCH ×3 (09:50→21:15)
[2019-01-09] MEDS: MINERAL OIL/PETROLAT/WATER TOPICAL CREAM 113 GM JAR TP SCH (09:50)
[2019-01-09] MEDS: BUPRENORPHINE/NALOXONE 4 MG/1 MG FILM PACKET SL SCH (13:57)
[2019-01-09] MEDS: THIAMINE HCL 100 MG TABLET (FP) PO SCH (21:15)
[2019-01-10] MEDS: MINERAL OIL/PETROLAT/WATER TOPICAL CREAM 113 GM JAR TP SCH (09:59)
[2019-01-10] MEDS: PRENATAL VITAMINS W/ FOLIC ACID TABLET (FP) PO SCH (09:59)
[2019-01-10] MEDS: BACITRACIN 15 GM TUBE TOPICAL OINTMENT TP SCH ×2 (09:59→21:51)
[2019-01-10] MEDS: GABAPENTIN 400 MG CAPSULE (FP) PO SCH ×3 (09:59→21:50)
[2019-01-10] MEDS: BUPRENORPHINE/NALOXONE 8 MG/2 MG FILM PACKET SL SCH ×2 (10:01→21:48)
[2019-01-10] MEDS: BUPRENORPHINE/NALOXONE 4 MG/1 MG FILM PACKET SL SCH (14:25)
[2019-01-10] MEDS: THIAMINE HCL 100 MG TABLET (FP) PO SCH (21:50)
[2019-01-11] MEDS: GABAPENTIN 400 MG CAPSULE (FP) PO SCH ×3 (10:52→22:06)
[2019-01-11] MEDS: PRENATAL VITAMINS W/ FOLIC ACID TABLET (FP) PO SCH (10:52)
[2019-01-11] MEDS: BACITRACIN 15 GM TUBE TOPICAL OINTMENT TP SCH ×2 (10:52→22:05)
[2019-01-11] MEDS: MINERAL OIL/PETROLAT/WATER TOPICAL CREAM 113 GM JAR TP SCH (10:52)
[2019-01-11] MEDS: BUPRENORPHINE/NALOXONE 8 MG/2 MG FILM PACKET SL SCH ×2 (10:55→22:34)
[2019-01-11] MEDS: BUPRENORPHINE/NALOXONE 4 MG/1 MG FILM PACKET SL SCH (14:43)
[2019-01-11] MEDS: MELATONIN 5 MG TABLETS PO PRN (22:06)
[2019-01-11] MEDS: THIAMINE HCL 100 MG TABLET (FP) PO SCH (22:06)
[2019-01-12] MEDS: MINERAL OIL/PETROLAT/WATER TOPICAL CREAM 113 GM JAR TP SCH (10:53)
[2019-01-12] MEDS: BACITRACIN 15 GM TUBE TOPICAL OINTMENT TP SCH ×2 (10:53→21:52)
[2019-01-12] MEDS: GABAPENTIN 400 MG CAPSULE (FP) PO SCH ×3 (10:53→21:52)
[2019-01-12] MEDS: PRENATAL VITAMINS W/ FOLIC ACID TABLET (FP) PO SCH (10:53)
[2019-01-12] MEDS: BUPRENORPHINE/NALOXONE 8 MG/2 MG FILM PACKET SL SCH ×2 (10:54→21:54)
[2019-01-12] MEDS: BUPRENORPHINE/NALOXONE 4 MG/1 MG FILM PACKET SL SCH (14:14)
[2019-01-12] MEDS: MELATONIN 5 MG TABLETS PO PRN (21:52)
[2019-01-12] MEDS: THIAMINE HCL 100 MG TABLET (FP) PO SCH (21:53)
[2019-01-13] MEDS: BUPRENORPHINE/NALOXONE 8 MG/2 MG FILM PACKET SL SCH ×2 (10:45→21:24)
[2019-01-13] MEDS: PRENATAL VITAMINS W/ FOLIC ACID TABLET (FP) PO SCH (10:45)
[2019-01-13] MEDS: GABAPENTIN 400 MG CAPSULE (FP) PO SCH ×3 (10:45→21:23)
[2019-01-13] MEDS: BACITRACIN 15 GM TUBE TOPICAL OINTMENT TP SCH ×2 (10:46→21:25)
[2019-01-13] MEDS: MINERAL OIL/PETROLAT/WATER TOPICAL CREAM 113 GM JAR TP SCH (10:46)
--- NOTE | 2019-01-13 11:39 | PN ---
[facility] Progress Note Note: Pt c/o right foot pain. Denies any acute truama. Pt was seen previous week and treatment for cracked/furrowed feet instituted. Treatment is progressing well as feet appearance is improved. Suggested to pt if he wants xray of foot done but he declined stating he will follow up with his doctor after discharge. Vital Signs - 24 hr 01/13/19 01/13/19 01/13/19 00:30 03:30 07:06 Temperature 98.1 F Pulse Rate 55 L 55 L 58 L Respiratory 18 18 18 Rate Blood Pressure 127/69 Right foot:clean, no scaliness,furrow closing,skin moist and pink. No edema. A/P foot pain-no known truama D/w pt who declined xray of right foot. will order xray right foot if pt changes his mind. continue warm foot soaks and bacitracin ointment as directed continue to moisturize with eucerin cream daily Follow up with primary care and podiatry after discharge from rehab.
[2019-01-13] MEDS: BUPRENORPHINE/NALOXONE 4 MG/1 MG FILM PACKET SL SCH (14:28)
[2019-01-13] MEDS: THIAMINE HCL 100 MG TABLET (FP) PO SCH (21:23)
[2019-01-13] MEDS: MELATONIN 5 MG TABLETS PO PRN (21:24)
[2019-01-14] MEDS: PRENATAL VITAMINS W/ FOLIC ACID TABLET (FP) PO SCH (10:25)
[2019-01-14] MEDS: GABAPENTIN 400 MG CAPSULE (FP) PO SCH ×3 (10:25→21:43)
[2019-01-14] MEDS: BACITRACIN 15 GM TUBE TOPICAL OINTMENT TP SCH ×2 (10:26→21:43)
[2019-01-14] MEDS: BUPRENORPHINE/NALOXONE 8 MG/2 MG FILM PACKET SL SCH ×2 (10:26→21:45)
[2019-01-14] MEDS: MINERAL OIL/PETROLAT/WATER TOPICAL CREAM 113 GM JAR TP SCH (10:26)
[2019-01-14] MEDS: BUPRENORPHINE/NALOXONE 4 MG/1 MG FILM PACKET SL SCH (14:13)
[2019-01-14] MEDS: THIAMINE HCL 100 MG TABLET (FP) PO SCH (21:43)
[2019-01-15] MEDS: GABAPENTIN 400 MG CAPSULE (FP) PO SCH ×3 (10:43→21:36)
[2019-01-15] MEDS: PRENATAL VITAMINS W/ FOLIC ACID TABLET (FP) PO SCH (10:43)
[2019-01-15] MEDS: MINERAL OIL/PETROLAT/WATER TOPICAL CREAM 113 GM JAR TP SCH (10:43)
[2019-01-15] MEDS: BACITRACIN 15 GM TUBE TOPICAL OINTMENT TP SCH ×2 (10:43→21:37)
[2019-01-15] MEDS: BUPRENORPHINE/NALOXONE 8 MG/2 MG FILM PACKET SL SCH ×2 (10:44→21:38)
[2019-01-15] MEDS: BUPRENORPHINE/NALOXONE 4 MG/1 MG FILM PACKET SL SCH (14:05)
[2019-01-15] MEDS: THIAMINE HCL 100 MG TABLET (FP) PO SCH (21:36)
[2019-01-16] MEDS: GABAPENTIN 400 MG CAPSULE (FP) PO SCH ×3 (11:54→21:27)
[2019-01-16] MEDS: PRENATAL VITAMINS W/ FOLIC ACID TABLET (FP) PO SCH (11:55)
[2019-01-16] MEDS: MINERAL OIL/PETROLAT/WATER TOPICAL CREAM 113 GM JAR TP SCH (11:55)
[2019-01-16] MEDS: BACITRACIN 15 GM TUBE TOPICAL OINTMENT TP SCH ×2 (11:55→21:26)
[2019-01-16] MEDS: BUPRENORPHINE/NALOXONE 8 MG/2 MG FILM PACKET SL SCH ×2 (11:55→21:27)
[2019-01-16] MEDS: BUPRENORPHINE/NALOXONE 4 MG/1 MG FILM PACKET SL SCH (14:58)
[2019-01-16] MEDS: MELATONIN 5 MG TABLETS PO PRN (21:27)
[2019-01-16] MEDS: THIAMINE HCL 100 MG TABLET (FP) PO SCH (21:28)
[2019-01-17] MEDS: GABAPENTIN 400 MG CAPSULE (FP) PO SCH ×3 (10:23→21:23)
[2019-01-17] MEDS: BUPRENORPHINE/NALOXONE 8 MG/2 MG FILM PACKET SL SCH ×2 (10:23→21:23)
[2019-01-17] MEDS: PRENATAL VITAMINS W/ FOLIC ACID TABLET (FP) PO SCH (10:23)
[2019-01-17] MEDS: MINERAL OIL/PETROLAT/WATER TOPICAL CREAM 113 GM JAR TP SCH (10:24)
[2019-01-17] MEDS: BACITRACIN 15 GM TUBE TOPICAL OINTMENT TP SCH ×2 (10:24→21:23)
[2019-01-17] MEDS: BUPRENORPHINE/NALOXONE 4 MG/1 MG FILM PACKET SL SCH (14:32)
[2019-01-17] MEDS: THIAMINE HCL 100 MG TABLET (FP) PO SCH (21:23)
[2019-01-18 07:14] VITALS: BP 131/74; PULSE 67; TEMP 97.2
[2019-01-18] MEDS: GABAPENTIN 400 MG CAPSULE (FP) PO SCH (09:02)
[2019-01-18] MEDS: PRENATAL VITAMINS W/ FOLIC ACID TABLET (FP) PO SCH (09:02)
[2019-01-18] MEDS: BUPRENORPHINE/NALOXONE 8 MG/2 MG FILM PACKET SL SCH (09:02)
[2019-01-18] MEDS: MINERAL OIL/PETROLAT/WATER TOPICAL CREAM 113 GM JAR TP SCH (09:02)
[2019-01-18] MEDS: BACITRACIN 15 GM TUBE TOPICAL OINTMENT TP SCH (09:02)
--- NOTE | 2019-01-18 09:32 | DS ---
[facility] Rehab Discharge Summary - [facility] Rehab Discharge Summary Admission Date: 01/04/19 Discharge Date: 01/18/19 - History Present History: Alcohol dependence Additional Comments: Pt is a 63 y/o male with a hx of opioid and alcohol dependence and on suboxone MAT admitted to rehab and discharged today. Pt reports primary care at [place], [place]. Pt is also connected to same location at their MMTP /Suboxone MAT program to continue CD aftercare. Pertinent Past History: Hep C Peripheral Neuropathy Varicose veins Anxiety Disorder - Discharge Physical Exam Vital Signs: Vital Signs Temperature 97.2 F L 01/18/19 07:13 Pulse Rate 67 01/18/19 07:13 Respiratory Rate 18 01/18/19 07:13 Blood Pressure 131/74 01/18/19 07:13 O2 Sat by Pulse Oximetry (%) Alert o x 3 nad oob ambulating with steady gait cardiac;s1 s2,rrr lungs:cta, samantha. abdomen:soft,+bs,nt,nd extremities/Skin:no edema,prominent veins to ankles-left > right;skin intact Pertinent Admission Physical Exam Findings: Unremarkable/Unchanged from Detox admission. - Treatment Discharge Condition: Discharge condition good Hospital Course: Rehabilitated safely and responded well CD aftercare accepted - Medication Discharge Medications: Ambulatory Orders Melatonin 5 mg PO HS PRN #30 tab 11/27/18 Gabapentin 400 mg PO TID 12/29/18 Buprenorphine HCl/Naloxone HCl [Suboxone 4 mg-1 mg Sl Film] 1 each SL DAILY Buprenorphine/Naloxone [Suboxone 8 mg/2Mg Sl Film -] 1 each SL BID 01/04/19 - Medication-Assisted Treatment (MAT) Medication-Assisted Treatment (MAT): Yes Medication Prescribed: Suboxone MAT Follow-up Referral: [facility]/Suboxone program [id number] Ph: - Discharge Instructions Diet, activity, other medical instructions: Diet:Regular Activity: oob ad wilman Other medical instructions:Follow up with CD aftercare and primary care at [facility] as scheduled. - Diagnosis (1) Neuropathy Status: Chronic (2) Varicose vein of leg Status: Chronic Qualifiers: Laterality: left Lower extremity ulceration location: ankle (3) Encounter for monitoring Suboxone maintenance therapy Status: Chronic (4) Hepatitis C Status: Chronic Qualifiers: Viral hepatitis chronicity: chronic Hepatic coma status: without hepatic coma Qualified Code(s): B18.2 - Chronic viral hepatitis C - Follow-up Referral Minutes to complete discharge: 25 - AMA Did Patient Leave Against Medical Advice: No Additional Comments: Pt will follow up with his suboxone provider for Rx today after discharge from rehab. No home Rx sent to pharmacy on this patient this admission by this provider.
== END 2019-01-18 10:25 | disposition home or self-care (01) | DRG 772 ==
LOC: YASAS 13:34 → Y5N 18:15
PROVIDERS: ADMIT Neuromusculoskeletal Medicine & OMM; ATTEND Neuromusculoskeletal Medicine & OMM
PROC: HZ42ZZZ Group Counseling for Substance Abuse Treatment, Cognitive-Behavioral (ICD-10-PCS; principal; 2019-01-04)
DX: F10.20 Alcohol dependence, uncomplicated (principal); F11.20 Opioid dependence, uncomplicated; F41.9 Anxiety disorder, unspecified; G62.9 Polyneuropathy, unspecified; B18.2 Chronic viral hepatitis C; I83.93 Asymptomatic varicose veins of bilateral lower extremities; L85.3 Xerosis cutis; M79.671 Pain in right foot; Z51.81 Encounter for therapeutic drug level monitoring

== ENCOUNTER 2019-02-01 12:20 | Inpatient (IN) | payer OTHER ==
[2019-02-01 14:05] VITALS: BMI 33.0
--- NOTE | 2019-02-01 14:51 | HP ---
CIWA Score Nausea/Vomitin-Mild Nausea/No Vomiting Muscle Tremors: 3 Anxiety: 3 Agitation: 2 Paroxysmal Sweats: 1-Minimal Palms Moist Orientation: 1-Uncertain about Date Tacttile Disturbances: 1-Very Mild Itch/Numbness Auditory Disturbances: 0-None Visual Disturbances: 0-None Headache: 0-None Present CIWA-Ar Total Score: 12 - Admission Criteria OASAS Guidelines: Admission for Medically Managed Detox: Requires at least one of the followin. CIWA greater than 12 2. Seizures within the past 24 hours 3. Delirium tremens within the past 24 hours 4. Hallucinations within the past 24 hours 5. Acute intervention needed for co occurring medical disorder 6. Acute intervention needed for co occurring psychiatric disorder 7. Severe withdrawal that cannot be handled at a lower level of care (continued vomiting, continued diarrhea, abnormal vital signs) requiring intravenous medication and/or fluids 8. Admitting History and Physical - Smoking History Smoking history: Never smoked Have you smoked in the past 12 months: No - Alcohol/Substance Use Hx Alcohol Use: Yes Admission ROS [facility] Chief Complaint: here for alcohol detox. On suboxone Allergies/Adverse Reactions: Allergies Allergy/AdvReac Type Severity Reaction Status Date / Time No Known Allergies Allergy Verified 02/01/19 13:59 History of Present Illness: 64 yo here for alcohol detox, left here about 2 weeks ago after completing detox /rehab. Pt is essentially homeless- lives in a friend's car. Has no family support. Pt does not eat every regularly. Is on welfare. No medical problems. On no meds Alcohol- drinks about 2 pints of vodka and beer daily. No h/o seizures, DT's. Started drinking in 2001. Was using cocaine and heroin before alcohol DUR- shows Suboxone 8mg/2mg #20 on 01/24 Utox- Bzo, Bup - Ebola screening Have you traveled outside of the country in the last 21 days: No Have you had contact with anyone from an Ebola affected area: No Do you have a fever: No - Review of Systems Constitutional: No Symptoms Reported EENT: reports: No Symptoms Reported Respiratory: reports: No Symptoms reported Cardiac: reports: No Symptoms Reported GI: reports: No Symptoms Reported : reports: No Symptoms Reported Musculoskeletal: reports: No Symptoms Reported Integumentary: reports: No Symptoms Reported Neuro: reports: No Symptoms reported Endocrine: reports: No Symptoms Reported Hematology: reports: No Symptoms Reported Psychiatric: reports: No Sypmtoms Reported Other Systems: Reviewed and Negative Patient History - Patient Medical History Hx Anemia: No Hx Asthma: No Hx Chronic Obstructive Pulmonary Disease (COPD): No Hx Cancer: No Hx Cardiac Disorders: No Hx Congestive Heart Failure: No Hx Hypertension: No Hx Hypercholesterolemia: No Hx Pacemaker: No HX Cerebrovascular Accident: No Hx Seizures: No Hx Dementia: No Hx Diabetes: No Hx Gastrointestinal Disorders: No Hx Liver Disease: No Hx Genitourinary Disorders: No Hx Sexually Transmitted Disorders: No Hx Renal Disease (ESRD): No Hx Thyroid Disease: No Hx Human Immunodeficiency Virus (HIV): No (last 2016) Hx Hepatitis C: Yes (treated) Hx Depression: Yes Hx Suicide Attempt: No Hx Bipolar Disorder: No Hx Schizophrenia: No - Patient Surgical History Past Surgical History: No Hx Neurologic Surgery: No Hx Cataract Extraction: No Hx Cardiac Surgery: No Hx Lung Surgery: No Hx Breast Surgery: No Hx Breast Biopsy: No Hx Abdominal Surgery: No Hx Appendectomy: No Hx Cholecystectomy: No Hx Genitourinary Surgery: No Hx Section: No Hx Orthopedic Surgery: No Anesthesia Reaction: No - PPD History Date: 04/17/18 Results: cxr(-)04/17/2018 - Smoking Cessation Smoking history: Never smoked Have you smoked in the past 12 months: No Hx Chewing Tobacco Use: No Initiated information on smoking cessation: No - Substance & Tx. History Hx Alcohol Use: Yes Hx Substance Use: Yes Substance Use Type: Alcohol, Prescribed - Substances abused Alcohol Substance route: Oral Frequency: Daily Amount used: 2 pints of vodka & 30-40 cans of beer Age of first use: 19 Date of last use: 02/01/19 Admission Physical Exam BHS - Vital Signs Vital Signs: Vital Signs - 24 hr 02/01/19 14:03 Temperature 97.0 F L Pulse Rate 60 Respiratory 18 Rate Blood Pressure 129/80 - Physical General Appearance: Yes: Within Normal Limits HEENTM: Yes: Within Normal Limits, Hearing grossly Normal, Normocephalic Respiratory: Yes: Within Normal Limits, Lungs Clear Neck: Yes: Within Normal Limits Cardiology: Yes: Within Normal Limits, Regular Rhythm Abdominal: Yes: Within Normal Limits Genitourinary: Yes: Within Normal Limits Back: Yes: Within Normal Limits Musculoskeletal: Yes: Within Normal Limits Extremities: Yes: Within Normal Limits Neurological: Yes: Within Normal Limits Integumentary: Yes: Within Normal Limits - Diagnostic (1) Alcohol dependence with uncomplicated withdrawal Current Visit: No Status: Acute (2) Encounter for monitoring Suboxone maintenance therapy Current Visit: No Status: Chronic (3) PPD positive, treated Current Visit: No Status: Resolved Breathalyzer - Breathalyzer Breathalyzer: 0.060 Urine Drug Screen - Test Device Lot number: [id number] Expiration date: 09/04/20 - Control Is test valid?: Yes - Results Drug screen NEGATIVE: No Urine drug screen results: BZO-Benzodiazepines, BUP-Suboxone Inpatient Rehab Admission - Rehab Decision to Admit Inpatient rehab admission?: No
[2019-02-01] MEDS ORDERED: hydrOXYzine PAMOATE 25 MG CAPSULE (FP) PO PRN (14:57)
[2019-02-01] MEDS ORDERED: BISMUTH SUBSALICYLATE 524 MG/30 ML UD PO PRN (14:57)
[2019-02-01] MEDS ORDERED: ONDANSETRON *ODT* 4 MG TABLET SL PRN (14:57)
[2019-02-01] MEDS ORDERED: ACETAMINOPHEN 325 MG TABLET (FP) PO PRN ×2 (14:57)
[2019-02-01] MEDS ORDERED: MAGNESIUM CITRATE 300 ML BOTTLE PO PRN (14:57)
[2019-02-01] MEDS ORDERED: chlordiazePOXIDE HCL 25 MG CAPSULE PO PRN (14:57)
[2019-02-01] MEDS ORDERED: MAGNESIUM HYDROX 2400MG/30ML ORAL SUSPENSION 30 ML CUP PO PRN (14:57)
[2019-02-01] MEDS ORDERED: MAG HYDROX/AL HYDROX/SIMETH 30 ML UNIT-DOSE CUP PO PRN (14:57)
[2019-02-01] MEDS ORDERED: METHOCARBAMOL 500 MG TABLET PO PRN (14:57)
[2019-02-01] MEDS ORDERED: IBUPROFEN 400 MG TABLET (FP) PO PRN (14:57)
[2019-02-01] MEDS ORDERED: MENTHOL/PHENOL 1 EACH UD MM PRN (14:57)
[2019-02-01] MEDS ORDERED: BUPRENORPHINE/NALOXONE 4 MG/1 MG FILM PACKET SL SCH (15:15)
[2019-02-01] MEDS: chlordiazePOXIDE HCL 25 MG CAPSULE PO SCH ×2 (17:22→22:09)
[2019-02-01] MEDS ORDERED: BUPRENORPHINE/NALOXONE 8 MG/2 MG FILM PACKET SL SCH (22:00)
[2019-02-01] MEDS: THIAMINE HCL 100 MG TABLET (FP) PO SCH (22:09)
[2019-02-01] MEDS: BUPRENORPHINE/NALOXONE 8 MG/2 MG FILM PACKET SL SCH (22:10)
[2019-02-01] MEDS: GABAPENTIN 400 MG CAPSULE (FP) PO SCH (22:10)
[2019-02-02] MEDS: chlordiazePOXIDE HCL 25 MG CAPSULE PO SCH ×4 (05:24→22:07)
[2019-02-02] MEDS: GABAPENTIN 400 MG CAPSULE (FP) PO SCH ×3 (05:25→22:08)
--- NOTE | 2019-02-02 09:32 | CONSULT ---
[facility] Psychiatric Consult - Data Date of interview: 02/02/19 Admission source: [facility] Identifying data: Patient is a 64 year old single male, father of two, unemployed, homeless, and is not currently receiving financial assistance. This is one of multiple admissions for patient. Patient admitted to for alcohol dependence. Substance Abuse History: Smoking Cessation. Smoking history: Never smoked. Have you smoked in the past 12 months: No. Hx Chewing Tobacco Use: No. Initiated information on smoking cessation: No. - Substance & Tx. History. Hx Alcohol Use: Yes. Hx Substance Use: Yes. Substance Use Type: Alcohol, Prescribed. - Substances abused. Alcohol. Substance route: Oral. Frequency: Daily. Amount used: 2 pints of vodka & 30-40 cans of beer. Age of first use: 19. Date of last use: 02/01/19 Psychiatric History: Patient denies history of psychiatric hospitalizations and suicide attempts. Mr. Mazariegos report seeing a psychiatrist while in correction in [place] in the and due to depression and anxiety. Patient unable to recall the names of the medications prescribed. Patient reports having worsening anxiety when he stops drinking alcohol. Mr. Cruz is not under psychiatric care. At present patient reports feeling mildly anxious. Physical/Sexual Abuse/Trauma History: denies. Mental Status Exam - Mental Status Exam Alert and Oriented to: Time, Place, Person Cognitive Function: Good Patient Appearance: Well Groomed Mood: Anxious Affect: Euthymic Patient Behavior: Cooperative Speech Pattern: Clear Voice Loudness: Moderately Soft/Quiet Thought Process: Goal Oriented Thought Disorder: Not Present Hallucinations: Denies Suicidal Ideation: Denies Homicidal Ideation: Denies Insight/Judgement: Poor Sleep: Fair Appetite: Fair Muscle strength/Tone: Normal Gait/Station: Normal Psychiatric Findings - Problem List ([place] 1, 2,3) (1) Alcohol dependence with uncomplicated withdrawal Current Visit: Yes Status: Acute (2) Anxiety disorder Current Visit: Yes Status: Suspected (3) Encounter for monitoring Suboxone maintenance therapy Current Visit: Yes Status: Chronic (4) Alcohol-induced anxiety disorder Current Visit: Yes Status: Acute - Initial Treatment Plan Initial Treatment Plan: Psychoeducation provided. Detoxification in progress. Will order Vistaril 25mg q4h. Patient also informed that Melatonin 5mg is ordered for insomnia. Benefits and side effects discussed. Verbal consent given.
--- NOTE | 2019-02-02 09:34 | PN ---
S CIWA - CIWA Score Nausea/Vomitin-Mild Nausea/No Vomiting Muscle Tremors: 3 Anxiety: 3 Agitation: 2 Paroxysmal Sweats: 2 Orientation: 1-Uncertain about Date (date of week) Tacttile Disturbances: 1-Very Mild Itch/Numbness Auditory Disturbances: 0-None Visual Disturbances: 0-None Headache: 0-None Present CIWA-Ar Total Score: 13 [facility] Progress Note (SOAP) Subjective: 64 years old male admitted on 02/01/19 for alcohol withdrawal sx management treated with librium detox regimen patient tolerated well seen by psychiatrist for depression anxity recommendation as consultation Objective: 02/02/19 09:35 Vital Signs Temperature 99.2 F 02/02/19 09:10 Pulse Rate 74 02/02/19 09:10 Respiratory Rate 18 02/02/19 09:10 Blood Pressure 110/76 02/02/19 09:10 O2 Sat by Pulse Oximetry (%) 02/02/19 09:35 lab pending Assessment: 02/02/19 09:35 alcohol withdrawal sx Plan: continue librium detox regimen
[2019-02-02 09:56] LABS: HEMATOCRIT 39.8 % (35.4-49); HEMOGLOBIN 13.6 GM/dL (11.7-16.9); MCH 33.4 pg (25.7-33.7); MCHC 34.3 g/dl (32.0-35.9); MEAN CELL VOLUME 97.6 fl (80-96); MEAN PLT VOLUME 10.2 fl (7.5-11.1); PLATELET COUNT 80 K/MM3 (134-434); RBC 4.08 M/mm3 (4.00-5.60); RDW 13.4 % (11.9-15.9); WHITE BLOOD COUNT 5.2 K/mm3 (4.0-10.0)
[2019-02-02 10:03] LABS: ALBUMIN 3.6 g/dl (3.4-5.0); BILIRUBIN,TOTAL 2.5 mg/dL (0.2-1); BLOOD UREA NITROGEN 10.8 mg/dL (7-18); CALCIUM 8.7 mg/dL (8.5-10.1); CREATININE 0.7 mg/dL (0.55-1.3); POTASSIUM 3.6 mmol/L (3.5-5.1); TOT PROT 7.8 g/dl (6.4-8.2)
--- NOTE | 2019-02-02 10:28 | PN ---
[facility] CIWA - CIWA Score Nausea/Vomitin-Mild Nausea/No Vomiting Muscle Tremors: 2 Anxiety: 2 Agitation: 2 Paroxysmal Sweats: 2 Orientation: 0-Oriented Tacttile Disturbances: 1-Very Mild Itch/Numbness Auditory Disturbances: 0-None Visual Disturbances: 0-None Headache: 0-None Present CIWA-Ar Total Score: 10 [facility] Progress Note (SOAP) Subjective: 64 years old male admitted on 02/01/19
[2019-02-02] MEDS: BUPRENORPHINE/NALOXONE 8 MG/2 MG FILM PACKET SL SCH ×2 (10:40→22:07)
[2019-02-02] MEDS: PRENATAL VITAMINS W/ FOLIC ACID TABLET (FP) PO SCH (10:40)
[2019-02-02] MEDS: BUPRENORPHINE/NALOXONE 4 MG/1 MG FILM PACKET SL SCH (12:52)
[2019-02-02] MEDS: THIAMINE HCL 100 MG TABLET (FP) PO SCH (22:08)
[2019-02-03] MEDS: GABAPENTIN 400 MG CAPSULE (FP) PO SCH ×3 (05:30→22:09)
[2019-02-03] MEDS: chlordiazePOXIDE HCL 25 MG CAPSULE PO SCH ×4 (05:30→22:09)
[2019-02-03] MEDS: BUPRENORPHINE/NALOXONE 8 MG/2 MG FILM PACKET SL SCH ×2 (10:03→22:08)
[2019-02-03] MEDS: PRENATAL VITAMINS W/ FOLIC ACID TABLET (FP) PO SCH (10:03)
--- NOTE | 2019-02-03 10:12 | PN ---
[facility] CIWA - CIWA Score Nausea/Vomitin-Mild Nausea/No Vomiting Muscle Tremors: 3 Anxiety: 2 Agitation: 2 Paroxysmal Sweats: 1-Minimal Palms Moist Orientation: 0-Oriented Tacttile Disturbances: 0-None Auditory Disturbances: 0-None Visual Disturbances: 0-None Headache: 0-None Present CIWA-Ar Total Score: 9 S Progress Note (SOAP) Subjective: 64 years old male admitted on 02/01/19 for alcohol withdrawal sx management treated with librium detox regimen less tremor sleep better at night social with peers in day room Objective: 02/03/19 10:09 Vital Signs Temperature 97.1 F L 02/03/19 09:15 Pulse Rate 92 H 02/03/19 09:15 Respiratory Rate 20 02/03/19 09:15 Blood Pressure 111/72 02/03/19 09:15 O2 Sat by Pulse Oximetry (%) Laboratory Last Values WBC 5.2 K/mm3 (4.0-10.0) 02/02/19 08:15 RBC 4.08 M/mm3 (4.00-5.60) 02/02/19 08:15 Hgb 13.6 GM/dL (11.7-16.9) 02/02/19 08:15 Hct 39.8 % (35.4-49) 02/02/19 08:15 MCV 97.6 fl (80-96) H 02/02/19 08:15 MCH 33.4 pg (25.7-33.7) 02/02/19 08:15 MCHC 34.3 g/dl (32.0-35.9) 02/02/19 08:15 RDW 13.4 % (11.9-15.9) D 02/02/19 08:15 Plt Count 80 K/MM3 (134-434) L 02/02/19 08:15 MPV 10.2 fl (7.5-11.1) 02/02/19 08:15 Sodium 141 mmol/L (136-145) 02/02/19 08:15 Potassium 3.6 mmol/L (3.5-5.1) 02/02/19 08:15 Chloride 106 mmol/L (98-107) 02/02/19 08:15 Carbon Dioxide 27 mmol/L (21-32) 02/02/19 08:15 Anion Gap 8 MMOL/L (8-16) 02/02/19 08:15 BUN 10.8 mg/dL (7-18) 02/02/19 08:15 Creatinine 0.7 mg/dL (0.55-1.3) 02/02/19 08:15 Est GFR (CKD-EPI)AfAm 115.59 02/02/19 08:15 Est GFR (CKD-EPI)NonAf 99.73 02/02/19 08:15 Random Glucose 103 mg/dL (74-106) 02/02/19 08:15 Calcium 8.7 mg/dL (8.5-10.1) 02/02/19 08:15 Total Bilirubin 2.5 mg/dL (0.2-1) H 02/02/19 08:15 AST 41 U/L (15-37) H 02/02/19 08:15 ALT 23 U/L (13-61) 02/02/19 08:15 Alkaline Phosphatase 96 U/L (45-117) 02/02/19 08:15 Total Protein 7.8 g/dl (6.4-8.2) 02/02/19 08:15 Albumin 3.6 g/dl (3.4-5.0) 02/02/19 08:15 lab noted low plt discontinue motrin Assessment: 02/03/19 10:11 alcohol withdrawal sx Plan: continue librium detox regimen
[2019-02-03] MEDS: CLOTRIMAZOLE 1% CREAM 15 GM TUBE TP SCH ×2 (10:16→22:08)
[2019-02-03] MEDS: BUPRENORPHINE/NALOXONE 4 MG/1 MG FILM PACKET SL SCH (13:40)
[2019-02-03] MEDS: THIAMINE HCL 100 MG TABLET (FP) PO SCH (22:10)
[2019-02-04] MEDS ORDERED: chlordiazePOXIDE HCL 10 MG CAPSULE PO PRN
[2019-02-04] MEDS: chlordiazePOXIDE HCL 10 MG CAPSULE PO SCH ×4 (05:24→21:59)
[2019-02-04] MEDS: GABAPENTIN 400 MG CAPSULE (FP) PO SCH ×3 (05:24→21:57)
[2019-02-04] MEDS: BUPRENORPHINE/NALOXONE 8 MG/2 MG FILM PACKET SL SCH ×2 (10:01→21:58)
[2019-02-04] MEDS: CLOTRIMAZOLE 1% CREAM 15 GM TUBE TP SCH ×2 (10:01→21:58)
[2019-02-04] MEDS: PRENATAL VITAMINS W/ FOLIC ACID TABLET (FP) PO SCH (10:01)
--- NOTE | 2019-02-04 10:15 | PN ---
[facility] CIWA - CIWA Score Nausea/Vomitin-No Nausea/No Vomiting Muscle Tremors: 2 Anxiety: 2 Agitation: 1-Slight > Activity Paroxysmal Sweats: No Perspiration Orientation: 0-Oriented Tacttile Disturbances: 0-None Auditory Disturbances: 0-None Visual Disturbances: 0-None Headache: 0-None Present CIWA-Ar Total Score: 5 [facility] Progress Note (SOAP) Subjective: 64 years old male admitted on 02/01/19 for alcohol withdrawal sx management treated with librium detox regimen mild tremor less anxiety sleep better at night Objective: 02/04/19 10:14 Vital Signs Temperature 97.5 F L 02/04/19 09:23 Pulse Rate 78 02/04/19 09:23 Respiratory Rate 18 02/04/19 09:23 Blood Pressure 114/76 02/04/19 09:23 O2 Sat by Pulse Oximetry (%) Laboratory Last Values WBC 5.2 K/mm3 (4.0-10.0) 02/02/19 08:15 RBC 4.08 M/mm3 (4.00-5.60) 02/02/19 08:15 Hgb 13.6 GM/dL (11.7-16.9) 02/02/19 08:15 Hct 39.8 % (35.4-49) 02/02/19 08:15 MCV 97.6 fl (80-96) H 02/02/19 08:15 MCH 33.4 pg (25.7-33.7) 02/02/19 08:15 MCHC 34.3 g/dl (32.0-35.9) 02/02/19 08:15 RDW 13.4 % (11.9-15.9) D 02/02/19 08:15 Plt Count 80 K/MM3 (134-434) L 02/02/19 08:15 MPV 10.2 fl (7.5-11.1) 02/02/19 08:15 Sodium 141 mmol/L (136-145) 02/02/19 08:15 Potassium 3.6 mmol/L (3.5-5.1) 02/02/19 08:15 Chloride 106 mmol/L (98-107) 02/02/19 08:15 Carbon Dioxide 27 mmol/L (21-32) 02/02/19 08:15 Anion Gap 8 MMOL/L (8-16) 02/02/19 08:15 BUN 10.8 mg/dL (7-18) 02/02/19 08:15 Creatinine 0.7 mg/dL (0.55-1.3) 02/02/19 08:15 Est GFR (CKD-EPI)AfAm 115.59 02/02/19 08:15 Est GFR (CKD-EPI)NonAf 99.73 02/02/19 08:15 Random Glucose 103 mg/dL (74-106) 02/02/19 08:15 Calcium 8.7 mg/dL (8.5-10.1) 02/02/19 08:15 Total Bilirubin 2.5 mg/dL (0.2-1) H 02/02/19 08:15 AST 41 U/L (15-37) H 02/02/19 08:15 ALT 23 U/L (13-61) 02/02/19 08:15 Alkaline Phosphatase 96 U/L (45-117) 02/02/19 08:15 Total Protein 7.8 g/dl (6.4-8.2) 02/02/19 08:15 Albumin 3.6 g/dl (3.4-5.0) 02/02/19 08:15 lab noted Assessment: 02/04/19 10:14 alcohol withdrawal sx Plan: continue librium detox regimen
[2019-02-04] MEDS: BUPRENORPHINE/NALOXONE 4 MG/1 MG FILM PACKET SL SCH (13:20)
[2019-02-04] MEDS: THIAMINE HCL 100 MG TABLET (FP) PO SCH (21:57)
[2019-02-04] MEDS: MELATONIN 5 MG TABLETS PO PRN (21:59)
[2019-02-05] MEDS: chlordiazePOXIDE HCL 10 MG CAPSULE PO SCH ×2 (05:56→16:45)
[2019-02-05] MEDS: GABAPENTIN 400 MG CAPSULE (FP) PO SCH ×3 (05:57→21:47)
[2019-02-05] MEDS: PRENATAL VITAMINS W/ FOLIC ACID TABLET (FP) PO SCH (10:06)
[2019-02-05] MEDS: CLOTRIMAZOLE 1% CREAM 15 GM TUBE TP SCH ×2 (10:06→21:46)
[2019-02-05] MEDS: BUPRENORPHINE/NALOXONE 8 MG/2 MG FILM PACKET SL SCH ×2 (10:06→21:47)
--- NOTE | 2019-02-05 11:01 | PN ---
S CIWA - CIWA Score Nausea/Vomitin-No Nausea/No Vomiting Muscle Tremors: None Anxiety: 1-Mildly Anxious Agitation: 1-Slight > Activity Paroxysmal Sweats: 1-Minimal Palms Moist Orientation: 0-Oriented Tacttile Disturbances: 1-Very Mild Itch/Numbness Auditory Disturbances: 0-None Visual Disturbances: 0-None Headache: 0-None Present CIWA-Ar Total Score: 4 [facility] Progress Note (SOAP) Subjective: interrupted sleep, achy but better Objective: 02/05/19 11:07 Vital Signs Temperature 97.5 F L 02/05/19 09:18 Pulse Rate 62 02/05/19 09:18 Respiratory Rate 20 02/05/19 09:18 Blood Pressure 99/64 02/05/19 09:18 O2 Sat by Pulse Oximetry (%) Laboratory Tests 02/02/19 02/02/19 08:15 08:15 WBC 5.2 RBC 4.08 Hgb 13.6 Hct 39.8 MCV 97.6 H MCH 33.4 MCHC 34.3 RDW 13.4 D Plt Count 80 L MPV 10.2 Sodium 141 Potassium 3.6 Chloride 106 Carbon Dioxide 27 Anion Gap 8 BUN 10.8 Creatinine 0.7 Est GFR (CKD-EPI)AfAm 115.59 Est GFR (CKD-EPI)NonAf 99.73 Random Glucose 103 Calcium 8.7 Total Bilirubin 2.5 H AST 41 H ALT 23 Alkaline Phosphatase 96 Total Protein 7.8 Albumin 3.6 pt aox3 in nad lying i bed comfortably Assessment: 02/05/19 11:08 withdrawal sx's Plan: cont. detox increase fluids d/c in am
[2019-02-05] MEDS: BUPRENORPHINE/NALOXONE 4 MG/1 MG FILM PACKET SL SCH (11:44)
[2019-02-05] MEDS: hydrOXYzine PAMOATE 25 MG CAPSULE (FP) PO PRN ×2 (14:42→21:48)
[2019-02-05] MEDS: THIAMINE HCL 100 MG TABLET (FP) PO SCH (21:46)
[2019-02-05] MEDS: MELATONIN 5 MG TABLETS PO PRN (21:47)
[2019-02-06] MEDS ORDERED: chlordiazePOXIDE HCL 10 MG CAPSULE PO ONE (05:00)
[2019-02-06] MEDS: GABAPENTIN 400 MG CAPSULE (FP) PO SCH (05:39)
[2019-02-06 09:08] VITALS: BP 112/71; PULSE 67; TEMP 98.3
[2019-02-06] MEDS: PRENATAL VITAMINS W/ FOLIC ACID TABLET (FP) PO SCH (10:16)
[2019-02-06] MEDS: BUPRENORPHINE/NALOXONE 8 MG/2 MG FILM PACKET SL SCH (10:16)
[2019-02-06] MEDS: CLOTRIMAZOLE 1% CREAM 15 GM TUBE TP SCH (10:17)
[2019-02-06] MEDS: hydrOXYzine PAMOATE 25 MG CAPSULE (FP) PO PRN (10:20)
--- NOTE | 2019-02-06 11:53 | DS ---
[facility] Detox Discharge Summary Admission Date: 02/01/19 Discharge Date: 02/06/19 - History Present History: Alcohol Dependence Additional Comments: Pt has completed his detox protocol and is medically cleared and discharged today to [facility] for continued care and management. Pt is instructed to follow-up at an outpatient CD program and also to follow-up with his pmd after his treatment. Pt verbalized understanding of the information given. Pt is alert and oriented x3 and in no acute respiratory distress. Pertinent Past History: H/O alcohol use disorder. - Physical Exam Results Vital Signs: Vital Signs Temperature 98.3 F 02/06/19 09:07 Pulse Rate 67 02/06/19 09:07 Respiratory Rate 18 02/06/19 09:07 Blood Pressure 112/71 02/06/19 09:07 O2 Sat by Pulse Oximetry (%) Vital Signs 02/06/19 02/06/19 06:10 09:07 Temperature 97.6 F 98.3 F Pulse Rate 57 L 67 Respiratory 18 18 Rate Blood Pressure 126/74 112/71 Lab Results WBC 5.2 K/mm3 (4.0-10.0) 02/02/19 08:15 RBC 4.08 M/mm3 (4.00-5.60) 02/02/19 08:15 Hgb 13.6 GM/dL (11.7-16.9) 02/02/19 08:15 Hct 39.8 % (35.4-49) 02/02/19 08:15 MCV 97.6 fl (80-96) H 02/02/19 08:15 MCHC 34.3 g/dl (32.0-35.9) 02/02/19 08:15 RDW 13.4 % (11.9-15.9) D 02/02/19 08:15 Plt Count 80 K/MM3 (134-434) L 02/02/19 08:15 Sodium 141 mmol/L (136-145) 02/02/19 08:15 Potassium 3.6 mmol/L (3.5-5.1) 02/02/19 08:15 Chloride 106 mmol/L (98-107) 02/02/19 08:15 Carbon Dioxide 27 mmol/L (21-32) 02/02/19 08:15 Anion Gap 8 MMOL/L (8-16) 02/02/19 08:15 BUN 10.8 mg/dL (7-18) 02/02/19 08:15 Creatinine 0.7 mg/dL (0.55-1.3) 02/02/19 08:15 Random Glucose 103 mg/dL (74-106) 02/02/19 08:15 Calcium 8.7 mg/dL (8.5-10.1) 02/02/19 08:15 Labs noted. Pertinent Admission Physical Exam Findings: withdrawal symptoms. - Treatment Hospital Course: Detox Protocol Followed, Detoxed Safely, Responded well, Discharged Condition Good, Rehab Referral Accepted Patient has Accepted a Rehab Referral to: [facility]. - Medication Discharge Medications: Ambulatory Orders Gabapentin 400 mg PO TID 12/29/18 Buprenorphine HCl/Naloxone HCl [Suboxone 4 mg-1 mg Sl Film] 1 each SL DAILY Buprenorphine/Naloxone [Suboxone 8 mg/2Mg Sl Film -] 1 each SL BID 01/04/19 - Diagnosis (1) Alcohol dependence with uncomplicated withdrawal Current Visit: Yes Status: Acute (2) Elevated aspartate aminotransferase level Current Visit: No Status: Acute (3) Hyperbilirubinemia Current Visit: No Status: Acute (4) Syncope Current Visit: No Status: Acute (5) Hepatitis C Current Visit: No Status: Chronic Qualifiers: Viral hepatitis chronicity: chronic Hepatic coma status: without hepatic coma Qualified Code(s): B18.2 - Chronic viral hepatitis C (6) Neuropathy Current Visit: No Status: Chronic (7) Varicose vein of leg Current Visit: No Status: Chronic Qualifiers: Laterality: left Lower extremity ulceration location: ankle - AMA Did Patient Leave Against Medical Advice: No S CIWA - CIWA Score Nausea/Vomitin-No Nausea/No Vomiting Muscle Tremors: None Anxiety: 1-Mildly Anxious Agitation: 0-Normal Activity Paroxysmal Sweats: 1-Minimal Palms Moist Orientation: 0-Oriented Tacttile Disturbances: 0-None Auditory Disturbances: 0-None Visual Disturbances: 0-None Headache: 0-None Present CIWA-Ar Total Score: 2
[2019-02-06] MEDS: BUPRENORPHINE/NALOXONE 4 MG/1 MG FILM PACKET SL SCH (12:18)
== END 2019-02-06 13:30 | disposition home or self-care (01) | DRG 773 ==
LOC: YASAS 12:20 → Y3N 15:32
PROVIDERS: ADMIT Allergy & Immunology; ATTEND Allergy & Immunology
PROC: HZ2ZZZZ Detoxification Services for Substance Abuse Treatment (ICD-10-PCS; principal; 2019-02-01)
DX: F10.230 Alcohol dependence with withdrawal, uncomplicated (principal); F10.280 Alcohol dependence with alcohol-induced anxiety disorder; F11.20 Opioid dependence, uncomplicated; F41.9 Anxiety disorder, unspecified; B18.2 Chronic viral hepatitis C; R74.0 Nonspecific elevation of levels of transaminase and lactic acid dehydrogenase [LDH]; E80.6 Other disorders of bilirubin metabolism; G62.9 Polyneuropathy, unspecified; I86.8 Varicose veins of other specified sites
CPT/HCPCS: 36415; 80053; 85027